=== PATIENT | male | born 1970 | race Caucasian/White ===

== ENCOUNTER 2017-10-25 09:03 | Emergency (ER) | payer MEDICAID ==
[~2017-10-25] VITALS: Ht 185.4 cm; Wt 138.3 kg
[2017-10-25] MEDS ORDERED: AMLODIPINE BESY10 MG PO (09:06)
[2017-10-25] MEDS ORDERED: CARVEDILOL12.5 MG PO (09:06)
[2017-10-25] MEDS ORDERED: GLUCOTROL5 MG PO (09:06)
[2017-10-25] MEDS ORDERED: JANUVIA100 MG PO (09:07)
[2017-10-25] MEDS ORDERED: LASIX 20 MG TAB20 MG PO (09:07)
[2017-10-25 09:32] LABS: HEMOGLOBIN 8.1 gm/dL (14.0-18.0); WBC 9.9 thou/uL (4.0-11.0)
[2017-10-25 09:34] LABS: HEMATOCRIT 26.1 % (42.0-52.0); MCH 23.7 pg (26.0-34.0); MCHC 30.9 g/dL (28.0-37.0); MCV 76.5 fL (80.0-100.0); MPV 8.1 fl. (7.2-11.1); NUCLEATED RBCS 0 /100WBC; PLATELET COUNT* 316 thou/uL (150-400); RBC 3.41 mil/uL (4.50-6.00); RDW-CV 19.9 % (10.5-14.5)
[2017-10-25 09:40] LABS: ANION GAP 10 mmol/L (7-16); BUN 43 mg/dL (7-18); CALCIUM 8.4 mg/dL (8.5-10.1); CHLORIDE 105 mmol/L (98-107); CO2 25 mmol/L (21-32); CREATININE 1.8 mg/dL (0.6-1.3); GLUCOSE 265 mg/dL (70-99); SODIUM 140 mmol/L (136-145)
[2017-10-25 09:51] LABS: ALBUMIN 2.9 g/dL (3.4-5.0); ALKALINE PHOSPHATASE 95 U/L (46-116); NT-PRO BRAIN NAT PEPTIDE 3779 pg/mL (<300); SGOT 16 U/L (15-37); SGPT 27 U/L (30-65); TOTAL BILIRUBIN 0.7 mg/dL (<0.1-1.0); TOTAL PROTEIN 7.9 g/dL (6.4-8.2); TROPONIN-I LEVEL <0.06 ng/mL (<0.06)
[2017-10-25 10:23] LABS: ABSOLUTE BASOPHILS 0.1 thou/uL (0.0-0.2); ABSOLUTE EOSINOPHILS 0.2 thou/uL (0.0-0.7); ABSOLUTE LYMPHOCYTES 0.5 thou/uL (0.8-5.3); ABSOLUTE MONOCYTES 0.2 thou/uL (0.0-1.2); ABSOLUTE NEUTROPHILS 8.9 thou/uL (1.6-8.1); ATYPICAL LYMPHS 1 %; METAMYELOCYTES 2 %
[2017-10-25 10:24] LABS: ANISOCYTOSIS 2+; HYPOCHROMASIA 1+; MICROCYTES 1+; PLATELET ESTIMATE ADEQUATE; POLYCHROMASIA 1+
[2017-10-25 13:50] VITALS: BP 120/75
--- NOTE | 2017-10-25 15:27 | EKG ---
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: Debra MOSER : 1970 Requested By: Billy Nunez Order Number: [id number] MD: Luis Carlos Dean Measurements Intervals [place] Rate: 103 P: 15 [place]: 172 QRS: -46 QRSD: 139 T: 135 QT: 380 QTc: 498 Interpretive Statements Sinus tachycardia artifact noted left axis Left bundle branch block No previous ECG available for comparison Electronically Signed On 10-25-2017 15:27:01 CDT by Luis Carlos Dean [email or web address] <ELECTRONICALLY SIGNED> By: Luis Carlos Dean MD, [facility] 10/25/17 1527 0907 6 Luis Carlos Dean MD, FACC /EPI
== END 2017-10-25 13:50 | disposition short-term general hospital (02) ==
LOC: M.ERS 09:03
PROVIDERS: Emergency Medicine Emergency Medical Services
DX: I50.9 Heart failure, unspecified (principal); E11.9 Type 2 diabetes mellitus without complications; Z87.891 Personal history of nicotine dependence

== ENCOUNTER 2018-01-19 04:37 | Inpatient (IN) | payer MEDICAID ==
[~2018-01-19] VITALS: Ht 185.4 cm; Wt 127.0 kg
[~2018-01-19 04:37] MED LIST: AMLODIPINE BESY10 MG PO; CARVEDILOL12.5 MG PO; GLUCOTROL5 MG PO; JANUVIA100 MG PO; LASIX 20 MG TAB20 MG PO
[2018-01-19 04:43] VITALS: BP 180/112
[2018-01-19] MEDS ORDERED: PREDNISONE 10 M10 MG PO (04:50)
[2018-01-19] MEDS ORDERED: LASIX 40 MG TAB40 M2 PO (04:50)
[2018-01-19] MEDS ORDERED: LISINOPRIL5 MG PO (04:50)
[2018-01-19] MEDS ORDERED: FLONASE 0.05%50 MCG INH (04:50)
[2018-01-19] MEDS ORDERED: COREG25 MG PO (04:51)
[2018-01-19] MEDS ORDERED: ALLOPURINOL 10100 M2 PO (04:51)
[2018-01-19] MEDS ORDERED: PROTONIX40 M1 PO (04:51)
[2018-01-19] MEDS ORDERED: METFORMIN HCL500 MG PO (04:52)
[2018-01-19] MEDS ORDERED: DILTIAZEM 24HR120 M1 PO (04:53)
[2018-01-19] MEDS ORDERED: IRON325 PO (04:53)
[2018-01-19] MEDS ORDERED: XARELTO15 MG PO (04:53)
[2018-01-19 05:09] LABS: HEMATOCRIT 25.7 % (42.0-52.0); HEMOGLOBIN 7.8 gm/dL (14.0-18.0); MCH 22.4 pg (26.0-34.0); MCHC 30.4 g/dL (28.0-37.0); MCV 73.7 fL (80.0-100.0); MPV 8.3 fl. (7.2-11.1); NUCLEATED RBCS 0 /100WBC; PLATELET COUNT* 378 thou/uL (150-400); RBC 3.49 mil/uL (4.50-6.00); RDW-CV 23.2 % (10.5-14.5); WBC 11.5 thou/uL (4.0-11.0)
[2018-01-19 05:20] LABS: ANION GAP 13 mmol/L (7-16); BUN 34 mg/dL (7-18); CALCIUM 8.8 mg/dL (8.5-10.1); CHLORIDE 101 mmol/L (98-107); CO2 25 mmol/L (21-32); CREATININE 1.6 mg/dL (0.6-1.3); GLUCOSE 269 mg/dL (70-99); POTASSIUM 4.1 mmol/L (3.5-5.1); SODIUM 139 mmol/L (136-145)
[2018-01-19 05:23] LABS: INR 1.2; PROTIME 11.9 Seconds (9.20-11.50)
[2018-01-19 05:35] LABS: ALBUMIN 2.8 g/dL (3.4-5.0); ALKALINE PHOSPHATASE 97 U/L (46-116); NT-PRO BRAIN NAT PEPTIDE 3401 pg/mL (<300); SGOT 13 U/L (15-37); SGPT 13 U/L (30-65); TOTAL BILIRUBIN 0.9 mg/dL (<0.1-1.0); TOTAL PROTEIN 7.9 g/dL (6.4-8.2); TROPONIN-I LEVEL <0.06 ng/mL (<0.06)
[2018-01-19 05:37] LABS: ABSOLUTE EOSINOPHILS 0.1 thou/uL (0.0-0.7); ABSOLUTE LYMPHOCYTES 1.2 thou/uL (0.8-5.3); ABSOLUTE MONOCYTES 1.2 thou/uL (0.0-1.2); ABSOLUTE NEUTROPHILS 9.1 thou/uL (1.6-8.1); PLATELET ESTIMATE ADEQUATE; POLYCHROMASIA 1+
[2018-01-19 05:38] LABS: ANISOCYTOSIS 1+; HYPOCHROMASIA 2+; MICROCYTES 1+; OVALOCYTES 1+; POIKILOCYTOSIS 1+
[2018-01-19 07:53] VITALS: BP 140/93
[2018-01-19 08:14] LABS: CHOLESTEROL 158 mg/dL (<200); HDL CHOLESTEROL 35 mg/dL (>40); LDL CHOLESTEROL 91 mg/dL (<100); TC:HDL 4.5 Ratio (Not establshd); TRIGLYCERIDE 162 mg/dL (<150); VLDL 32 mg/dL (<40)
[2018-01-19 08:15] LABS: SERUM ASSESSMENT Clear
--- NOTE | 2018-01-19 10:41 | EKG ---
[place] [address] ELECTROCARDIOGRAM REPORT Name: YAQUELIN WHITAKER Room: [address] IN [facility].#: [id number] Admission: 01/19/18 Attend Phys: Shankar Doty Discharge: Date of : 68 Report #: [id number] THIS REPORT FOR: //name// 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: ANNE Richardson : 1970 Requested By: Gege Zimmer Order Number: [id number] MD: Luis Carlos Dean Measurements Intervals [place] Rate: 117 P: 0 [place]: 138 QRS: -23 QRSD: 144 T: 147 QT: 358 QTc: 500 Interpretive Statements Sinus tachycardia Left bundle branch block Baseline wander in lead(s) V3 Compared to ECG 10/25/2017 09:07:42 No significant changes Electronically Signed On 01-19-2018 10:41:15 CDT by Luis Carlos Dean [email or web address] <ELECTRONICALLY SIGNED> By: Luis Carlos Dean MD, [facility] 01/19/18 1041 0458 0458 Luis Carlos Dean MD, [facility] /EPI
[2018-01-19 12:00] VITALS: BP 146/85
--- NOTE | 2018-01-19 13:47 | 2DMMODE ---
[place] [address] 2 D/M-MODE ECHOCARDIOGRAM Name: YAQUELIN WHITAKER Room: [address] IN [facility]#: [id number] Admission: 01/19/18 Attend Phys: Xu Alicea Discharge: Date of : 68 Date of Service: 01/19/18 1347 Report #: [id number] THIS REPORT FOR: //name// APPROVED REPORT Study performed: 01/19/2018 10:43:09 EXAM: Comprehensive 2D, Doppler, and color-flow Echocardiogram Patient Location: In-Patient Room #: [facility] Status: routine BSA: 2.48 HR: 91 bpm BP: 140/93 mmHg Rhythm: NSR Other Information Study Quality: Good Indications Congestive Heart Failure 2D Dimensions LVEF(%): 35.81 (>50%) IVSd: 13.60 (7-11mm) LVOT Diam: 20.03 (18-24mm) LVDd: 62.32 mm PWd: 12.06 (7-11mm) Ascending Ao: 34.97 (22-36mm) LVDs: 51.38 (25-40mm) Aortic Root: 30.95 mm Moore's LVEF: 35.81 % Volumes Left Atrial Volume (Systole) LA ESV Index: 43.40 mL/m2 Aortic Valve AoV Peak Tano.: 1.55 m/s AO Peak Gr.: 9.64 mmHg LVOT Max P.69 mmHg AO Mean Gr.: 5.64 mmHg LVOT Mean P.28 mmHg LVOT Max V: 1.29 m/s AO V2 VTI: 27.43 cm LVOT Mean V: 0.82 m/s LINDA (VTI): 2.71 cm2 LVOT V1 VTI: 23.59 cm Mitral Valve E/A Ratio: 1.59 [place] [address] 2 D/M-MODE ECHOCARDIOGRAM Name: YAQUELIN WHITAKER Room: [address] IN .R.#: [id number] Admission: 01/19/18 Attend Phys: Xu Alicea Discharge: Date of : 68 Date of Service: 01/19/18 1347 Report #: [id number] E Max Tano.: 1.47 m/s TDI E/Lateral E': 14.70 E/Medial E': 16.33 Medial E' Tano.: 0.09 m/s Lateral E' Tano.: 0.10 m/s Pulmonary Valve PV Peak Tano.: 1.08 m/s PV Peak Gr.: 4.71 mmHg Tricuspid Valve TR Peak Gr.: 27.24 mmHg RVSP: 32.00 mmHg Left Ventricle Left ventricle is mildly dilated. There is global hypokinesis of the left ventricle. Mild concentric left ventricular hypertrophy. Left ventricular systolic function is moderately decreased. LVEF is 30-35%. The left ventricular diastolic function is normal. Right Ventricle The right ventricle is normal size. The right ventricular systolic function is normal. Atria Left atrium is moderately dilated. The right atrium size is normal. Aortic Valve The Aortic valve is sclerotic. No aortic regurgitation is present. There is no aortic valvular stenosis. Mitral Valve The mitral valve is normal in structure. Trace mitral regurgitation. No evidence of mitral valve stenosis. Tricuspid Valve The tricuspid valve is normal in structure. Trace tricuspid regurgitation. The RVSP is 30-35 mmHg. Pulmonic Valve Pulmonic valve is not well visualized. Mild pulmonic regurgitation. Great Vessels The aortic root is normal in size. IVC is normal in size and collapses with >50% [place] [address] 2 D/M-MODE ECHOCARDIOGRAM Name: YAQUELIN WHITAKER Melissa Room: [address] IN [facility]#: [id number] Admission: 01/19/18 Attend Phys: Xu Alicea Discharge: Date of : 68 Date of Service: 01/19/18 1347 Report #: [id number] Pericardium There is no pericardial effusion. <Conclusion> Mild concentric left ventricular hypertrophy. LVEF is 30-35%. Left atrium is moderately dilated. The Aortic valve is sclerotic. <ELECTRONICALLY SIGNED> By: Luis Carlos Dean MD, [facility] 01/19/18 134 46 46 Luis Carlos Dean MD, FAC /INF
[2018-01-19 16:00] VITALS: BP 147/69
[2018-01-19 16:19] LABS: URINE BILIRUBIN NEGATIVE (Negative); URINE BLOOD TRACE (Negative); URINE CLARITY CLEAR; URINE COLOR YELLOW; URINE GLUCOSE-RANDOM TRACE (Negative); URINE KETONES NEGATIVE (Negative); URINE LEUKOCYTES-REFLEX NEGATIVE (Negative); URINE NITRITE-REFLEX NEGATIVE (Negative); URINE PROTEIN 3+ (Negative); URINE UROBILINOGEN 0.2 E.U./dl (0.2-1.0)
[2018-01-19 16:34] LABS: HYALINE CASTS 4-10 Moderate /LPF (None Seen)
[2018-01-19 16:35] LABS: CRYSTALS None Seen /LPF (None Seen); MUCUS None Seen strn/LPF (None Seen); SQUAMOUS 0-3 Few /LPF (0-3)
[2018-01-19 16:36] LABS: BACTERIA-REFLEX None Seen /HPF (None Seen); URINE RBC 0-2 Rare /HPF (0-2); URINE WBC-REFLEX 0-5 Rare /HPF (0-5)
[2018-01-19 20:00] VITALS: BP 159/85
[2018-01-20 04:00] VITALS: BP 135/71
[2018-01-20 05:03] LABS: HEMATOCRIT 21.6 % (42.0-52.0)
[2018-01-20 05:05] LABS: CALCIUM 8.7 mg/dL (8.5-10.1); CREATININE 1.7 mg/dL (0.6-1.3); POTASSIUM 4.1 mmol/L (3.5-5.1)
[2018-01-20 05:08] LABS: HEMOGLOBIN 6.7 gm/dL (14.0-18.0)
[2018-01-20 06:19] LABS: HEMATOCRIT 22.7 % (42.0-52.0)
[2018-01-20 06:20] LABS: HEMOGLOBIN 6.9 gm/dL (14.0-18.0)
[2018-01-20 08:00] VITALS: BP 130/80
[2018-01-20 08:32] VITALS: BP 119/69; BP 130/86; BP 133/78; BP 135/74
[2018-01-20 12:00] VITALS: BP 170/94
[2018-01-20 16:12] VITALS: BP 143/78
[2018-01-20 20:00] VITALS: BP 155/85
[2018-01-21 04:00] VITALS: BP 179/90
[2018-01-21 04:10] VITALS: BP 147/78
[2018-01-21 04:52] LABS: HEMATOCRIT 25.1 % (42.0-52.0); HEMOGLOBIN 7.7 gm/dL (14.0-18.0)
[2018-01-21 05:13] LABS: CALCIUM 8.6 mg/dL (8.5-10.1); CREATININE 1.6 mg/dL (0.6-1.3); POTASSIUM 4.4 mmol/L (3.5-5.1)
[2018-01-21 08:00] VITALS: BP 169/77
[2018-01-21] MEDS ORDERED: KEFLEX500 M1 PO (09:58)
[2018-01-21] MEDS ORDERED: TYLENOL325 MG PO (10:53)
[2018-01-21 12:00] VITALS: BP 151/85
[2018-01-21 16:00] VITALS: BP 158/86
--- NOTE | 2018-01-23 18:18 | CON ---
[facility] [address] [place] [address] CONSULTATION Name: YAQUELIN WHITAKER Room: [address] IN M.R.#: [id number] Admission: 01/19/18 Attend Phys: Shankar Doty Discharge: 01/21/18 Date of : 68 Report #: [id number] THIS REPORT FOR: //name// CC: VIKTOR physician/PCP Xu Alicea DATE OF SERVICE: 01/19/2018 HISTORY OF PRESENT ILLNESS: The patient is a 47-year-old single white male who was admitted complaining of shortness of breath. Unfortunately, no old records available. The patient states he was doing well until he was admitted to [facility] in July with shortness of breath. He has had 8 hospitalizations at [facility] since that time. Workup included being told he had congestive heart failure. He apparently never had a heart catheterization. He has had swelling of his legs, but apparently Doppler study showed no clots. Recently, he has been coughing and had a lot of sinus congestion and has had a little more swelling. He came to the hospital yesterday and was admitted. He has had no fever, chest pain, palpitations or bleeding. He does occasionally feel lightheaded. PAST MEDICAL HISTORY: Significant for no major surgical procedures. He does have history of gout, diabetes, hypertension, hyperlipidemia. He has had a fast irregular heartbeat in the past and was placed on Xarelto. CURRENT MEDICATIONS: Consist of the following: He is on Januvia, prednisone, lisinopril, Lasix, Flonase, carvedilol, allopurinol, Protonix, metformin, diltiazem, furosemide, Xarelto. ALLERGIES: He has no known drug allergies. FAMILY HISTORY: Negative for heart disease. SOCIAL HISTORY: He is . 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 He quit smoking 5 years ago. No alcohol abuse. REVIEW OF SYSTEMS: He is overweight, being 6 feet 1 inch, 280 pounds. He has no history of stroke, asthma, peptic ulcer disease, liver disease. He has chronic kidney disease, no cancer. No psychiatric illness. PHYSICAL EXAMINATION: GENERAL: Revealed a middle-aged white male, BiPAP in place, but appeared in no acute distress. VITAL SIGNS: Revealed a blood pressure of 160/80, pulse 100. He is afebrile. HEENT: He is anicteric. Conjunctivae pink. Mucous membranes moist. NECK: Veins are difficult to assess due to obesity. CHEST: Revealed [place] [address] CONSULTATION Name: YAQUELIN WHITAKER Room: [address] IN M.R.#: [id number] Admission: 01/19/18 Attend Phys: Shankar Doty Discharge: 01/21/18 Date of : 68 Report #: [id number] CARDIOVASCULAR: Regular rate and rhythm. ABDOMEN: Obese, soft, nontender. EXTREMITIES: Had 1+ edema up to the mid tibial area. Dorsalis pedis pulse 1+ bilaterally. SKIN: Cool and dry. NEUROLOGIC: Nonfocal. LYMPH: No adenopathy. MUSCULOSKELETAL: No joint effusion. PSYCHIATRIC: Mood appeared somewhat depressed. His ECG showed a sinus tachycardia with a left bundle branch block. Workup in the Emergency Room included a chest x-ray that showed cardiomegaly, clear lung lemus, evidence of atelectasis. LABORATORY DATA: Sodium 139, BUN 34, creatinine 1.6, potassium 4.1, glucose 269. Liver function studies were normal. Albumin is only 2.8. Troponin 0.10. He had a BNP 3401. Cholesterol 158, triglyceride 162, HDL 35, LDL 91. TSH 1.7. White blood cell of 11.5, hemoglobin 7.8. IMPRESSION AND RECOMMENDATIONS: 1. Shortness of breath. Suspect chronic obstructive pulmonary disease. 2. History of cardiomyopathy. The patient is followed at [facility]. The patient has been on an KINGSTON inhibitor and beta alannah. We will obtain echocardiogram. 3. History of tachyarrhythmia. The patient is on diltiazem and a beta alannah. The patient has been anticoagulated. I would hold Xarelto because of anemia. 4. Diabetes. 5. Obesity. 6. Chronic obstructive pulmonary disease. 7. Anemia. I would hold Xarelto at this time. <ELECTRONICALLY SIGNED> By: Luis Carlos Dean MD, [facility] 01/23/18 1818 1101 1638Luis Carlos Dean MD, FAC /nt
== END 2018-01-21 18:31 | disposition home or self-care (01) | DRG 291 ==
LOC: M.ERS 04:37 → M.2W 06:16 → M.TBA-ER 06:16 → M.2W 08:06
PROVIDERS: Emergency Medicine; Internal Medicine; Internal Medicine Cardiovascular Disease; ADMIT Internal Medicine
PROC: 5A09357 Assistance with Respiratory Ventilation, Less than 24 Consecutive Hours, Continuous Positive Airway Pressure (ICD-10-PCS; principal; 2018-01-19)
PROC: 30233N1 Transfusion of Nonautologous Red Blood Cells into Peripheral Vein, Percutaneous Approach (ICD-10-PCS; 2018-01-20)
DX: I13.0 Hypertensive heart and chronic kidney disease with heart failure and stage 1 through stage 4 chronic kidney disease, or unspecified chronic kidney disease (principal); I50.41 Acute combined systolic (congestive) and diastolic (congestive) heart failure; J96.00 Acute respiratory failure, unspecified whether with hypoxia or hypercapnia; I42.9 Cardiomyopathy, unspecified; D64.9 Anemia, unspecified; I48.91 Unspecified atrial fibrillation; Z79.01 Long term (current) use of anticoagulants; R61 Generalized hyperhidrosis; K21.9 Gastro-esophageal reflux disease without esophagitis; M10.9 Gout, unspecified; E11.22 Type 2 diabetes mellitus with diabetic chronic kidney disease; J44.9 Chronic obstructive pulmonary disease, unspecified; E78.5 Hyperlipidemia, unspecified; N18.9 Chronic kidney disease, unspecified; Z79.4 Long term (current) use of insulin

== ENCOUNTER 2018-02-11 09:31 | Inpatient (IN) | payer MEDICAID ==
[~2018-02-11] VITALS: Ht 182.9 cm; Wt 135.2 kg
[~2018-02-11 09:31] MED LIST changes: +ALLOPURINOL 10100 M2 PO; +COREG25 MG PO; +DILTIAZEM 24HR120 M1 PO; +FLONASE 0.05%50 MCG INH; +IRON325 PO; +KEFLEX500 M1 PO; +LASIX 40 MG TAB40 M2 PO; +LISINOPRIL5 MG PO; +METFORMIN HCL500 MG PO; +PREDNISONE 10 M10 MG PO; +PROTONIX40 M1 PO; +TYLENOL325 MG PO; +XARELTO15 MG PO
[2018-02-11 09:36] VITALS: BP 175/101
[2018-02-11] MEDS ORDERED: XARELTO15 MG PO (09:41)
[2018-02-11 10:14] LABS: BE 3.3 mmol/L (-2 to +3); HCO3 28.1 mmol/L (22.0-26.0); pH 7.423 (7.340-7.450)
[2018-02-11 10:15] LABS: PO2 125.6 mmHg (75.0-100.0)
[2018-02-11 10:21] LABS: HEMOGLOBIN 9.3 gm/dL (14.0-18.0); MCH 23.2 pg (26.0-34.0); MCHC 30.8 g/dL (28.0-37.0); MCV 75.4 fL (80.0-100.0); MPV 7.7 fl. (7.2-11.1); NUCLEATED RBCS 0 /100WBC; PLATELET COUNT* 292 thou/uL (150-400); RBC 3.99 mil/uL (4.50-6.00); RDW-CV 22.6 % (10.5-14.5); WBC 11.1 thou/uL (4.0-11.0)
[2018-02-11 10:33] LABS: CALCIUM 8.6 mg/dL (8.5-10.1); CREATININE 1.4 mg/dL (0.6-1.3); POTASSIUM 3.4 mmol/L (3.5-5.1)
[2018-02-11 10:44] LABS: ALBUMIN 2.9 g/dL (3.4-5.0); MAGNESIUM 1.9 mg/dL (1.8-2.4); TOTAL BILIRUBIN 0.4 mg/dL (<0.1-1.0); TOTAL PROTEIN 7.2 g/dL (6.4-8.2)
[2018-02-11 11:01] LABS: ABSOLUTE MONOCYTES 0.8 thou/uL (0.0-1.2); ABSOLUTE NEUTROPHILS 9.3 thou/uL (1.6-8.1); ANISOCYTOSIS 1+; HYPOCHROMASIA Occasional; PLATELET ESTIMATE ADEQUATE; POIKILOCYTOSIS 1+
[2018-02-11 11:36] LABS: URINE BILIRUBIN NEGATIVE (Negative); URINE BLOOD TRACE (Negative); URINE CLARITY CLEAR; URINE COLOR YELLOW; URINE GLUCOSE-RANDOM NEGATIVE (Negative); URINE KETONES NEGATIVE (Negative); URINE LEUKOCYTES-REFLEX NEGATIVE (Negative); URINE NITRITE-REFLEX NEGATIVE (Negative); URINE PROTEIN 2+ (Negative); URINE UROBILINOGEN 0.2 E.U./dl (0.2-1.0)
[2018-02-11 11:43] LABS: BACTERIA-REFLEX 1-9 Few /HPF (None Seen); CASTS None Seen /LPF (None Seen); CRYSTALS None Seen /LPF (None Seen); MUCUS 4-6 Moderate strn/LPF (None Seen); SQUAMOUS 0-3 Few /LPF (0-3); URINE RBC 0-2 Rare /HPF (0-2); URINE WBC-REFLEX 0-5 Rare /HPF (0-5)
[2018-02-11 11:57] VITALS: BP 152/92
[2018-02-11 12:30] VITALS: BP 142/87
--- NOTE | 2018-02-11 14:53 | EKG ---
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: : 1970 Requested By: Marii Ng Order Number: [id number] MD: Luis Carlos Dean Measurements Intervals [place] Rate: 89 P: 51 [place]: 155 QRS: -53 QRSD: 139 T: 111 QT: 389 QTc: 474 Interpretive Statements Sinus rhythm Probable left atrial enlargement Nonspecific IVCD with LAD Consider anterior infarct Abnormal T, consider ischemia, lateral leads Baseline wander in lead(s) V4 Compared to ECG 01/19/2018 04:58:54 Sinus tachycardia no longer present Left bundle-branch block no longer present Electronically Signed On 02-11-2018 14:53:04 CDT by Luis Carlos Dean [email or web address] <ELECTRONICALLY SIGNED> By: Luis Carlos Dean MD, FACC 02/11/18 1453 0939 0939 Luis Carlos Dean MD, FAC /EPI
[2018-02-11 15:48] VITALS: BP 125/60
[2018-02-12 03:44] VITALS: BP 147/81
[2018-02-12 08:00] VITALS: BP 182/103
[2018-02-12 08:12] LABS: HEMOGLOBIN 9.9 gm/dL (14.0-18.0); MCH 23.1 pg (26.0-34.0); MCHC 30.9 g/dL (28.0-37.0); MCV 74.6 fL (80.0-100.0); MPV 8.3 fl. (7.2-11.1); RBC 4.29 mil/uL (4.50-6.00); RDW-CV 22.5 % (10.5-14.5); WBC 11.9 thou/uL (4.0-11.0)
[2018-02-12 08:22] LABS: PHOSPHORUS* 5.1 mg/dL (2.5-4.9)
[2018-02-12 08:23] LABS: ALBUMIN 3.1 g/dL (3.4-5.0); CALCIUM 8.5 mg/dL (8.5-10.1); CREATININE 1.5 mg/dL (0.6-1.3); POTASSIUM 3.8 mmol/L (3.5-5.1)
[2018-02-12 12:00] VITALS: BP 159/88
[2018-02-12 15:50] VITALS: BP 150/88
[2018-02-12 22:00] VITALS: BP 161/83
[2018-02-13 04:00] VITALS: BP 164/97
[2018-02-13 08:00] VITALS: BP 186/106
[2018-02-13 12:01] VITALS: BP 168/99
[2018-02-13] MEDS ORDERED: TRADJENTA5 MG PO (12:38)
[2018-02-13] MEDS ORDERED: KLOR-CON 1010 MEQ PO (12:38)
[2018-02-13] MEDS ORDERED: LASIX 40 MG TAB40 M2 PO (12:38)
[2018-02-13 12:51] VITALS: BP 168/99
== END 2018-02-13 13:35 | disposition home or self-care (01) | DRG 293 ==
LOC: M.ERS 09:31 → M.2W 11:09 → M.TBA-ER 11:09 → M.2W 11:53
PROVIDERS: Internal Medicine; Personal Emergency Response Attendant; ADMIT Internal Medicine
DX: I50.9 Heart failure, unspecified (principal); J01.91 Acute recurrent sinusitis, unspecified; E11.9 Type 2 diabetes mellitus without complications; M10.9 Gout, unspecified; J06.9 Acute upper respiratory infection, unspecified; N19 Unspecified kidney failure; D64.9 Anemia, unspecified; I48.91 Unspecified atrial fibrillation; Z79.01 Long term (current) use of anticoagulants; Z79.899 Other long term (current) drug therapy; Z87.891 Personal history of nicotine dependence

== ENCOUNTER 2018-05-17 23:15 | Emergency (ER) | payer MEDICAID ==
[~2018-05-17] VITALS: Ht 185.4 cm; Wt 147.6 kg
[~2018-05-17 23:15] MED LIST changes: +KLOR-CON 1010 MEQ PO; +TRADJENTA5 MG PO
[2018-05-17] MEDS ORDERED: PRINIVIL20 MG PO (23:40)
[2018-05-18 00:45] LABS: HEMATOCRIT 30.6 % (42.0-52.0); HEMOGLOBIN 9.7 gm/dL (14.0-18.0); MCH 25.2 pg (26.0-34.0); MCHC 31.7 g/dL (28.0-37.0); MCV 79.6 fL (80.0-100.0); MPV 8.5 fl. (7.2-11.1); NUCLEATED RBCS 0 /100WBC; PLATELET COUNT* 229 thou/uL (150-400); RBC 3.85 mil/uL (4.50-6.00); RDW-CV 20.6 % (10.5-14.5); WBC 9.3 thou/uL (4.0-11.0)
[2018-05-18 00:53] LABS: ANION GAP 4 mmol/L (7-16); BUN 38 mg/dL (7-18); CALCIUM 8.3 mg/dL (8.5-10.1); CHLORIDE 105 mmol/L (98-107); CO2 30 mmol/L (21-32); CREATININE 1.6 mg/dL (0.6-1.3); GLUCOSE 269 mg/dL (70-99); POTASSIUM 4.4 mmol/L (3.5-5.1); SODIUM 139 mmol/L (136-145)
[2018-05-18 00:56] LABS: BE 0.9 mmol/L (-2 to +3); HCO3 25.4 mmol/L (22.0-26.0); PCO2 39.8 mmHg (35.0-45.0); PO2 76.6 mmHg (75.0-100.0); pH 7.422 (7.340-7.450)
[2018-05-18 01:04] LABS: ALBUMIN 2.7 g/dL (3.4-5.0); ALKALINE PHOSPHATASE 88 U/L (46-116); NT-PRO BRAIN NAT PEPTIDE 1868 pg/mL (<300); SGOT 7 U/L (15-37); SGPT 11 U/L (30-65); TOTAL BILIRUBIN 0.6 mg/dL (<0.1-1.0); TOTAL PROTEIN 6.7 g/dL (6.4-8.2); TROPONIN-I LEVEL <0.06 ng/mL (<0.06)
[2018-05-18 01:46] LABS: ABSOLUTE LYMPHOCYTES 0.5 thou/uL (0.8-5.3); ABSOLUTE MONOCYTES 0.8 thou/uL (0.0-1.2); PLATELET ESTIMATE ADEQUATE
[2018-05-18 01:47] LABS: ANISOCYTOSIS 2+; POLYCHROMASIA 1+
[2018-05-18 02:09] VITALS: BP 155/79
--- NOTE | 2018-05-18 11:00 | EKG ---
[place] [address] ELECTROCARDIOGRAM REPORT Name: YAQUELIN WHITAKER Room: [facility]#: [id number] Admission: 05/17/18 Attend Phys: Discharge: 05/18/18 Date of : 68 Report #: [id number] THIS REPORT FOR: //name// [facility] ED Test Date: 2018-05-18 Test Time: 01:38:37 Pat Name: YAQUELIN WHITAKER Department: Room: Gender: M Qa Analyst: 99 : 1970 Requested By: Marii Ng Order Number: [id number] MD: Luis Carlos Dean Measurements Intervals [place] Rate: 82 P: 29 [place]: 176 QRS: -49 QRSD: 133 T: 121 QT: 427 QTc: 499 Interpretive Statements Sinus rhythm Left bundle branch block Compared to ECG 02/11/2018 09:39:12 no change Electronically Signed On 05-18-2018 11:00:04 CDT by Luis Carlos Dean [email or web address] <ELECTRONICALLY SIGNED> By: Luis Carlos Dean MD, [facility] 05/18/18 1100 0138 0138 Luis Carlos Dean MD, FACC /EPI
== END 2018-05-18 02:09 | disposition home or self-care (01) ==
LOC: M.ERS 23:15
PROVIDERS: Personal Emergency Response Attendant
DX: I50.9 Heart failure, unspecified (principal); I48.91 Unspecified atrial fibrillation; E11.9 Type 2 diabetes mellitus without complications; M10.9 Gout, unspecified; N19 Unspecified kidney failure; Z86.2 Personal history of diseases of the blood and blood-forming organs and certain disorders involving the immune mechanism; Z87.891 Personal history of nicotine dependence

== ENCOUNTER 2018-11-28 11:39 | Emergency (ER) | payer MEDICAID ==
[~2018-11-28] VITALS: Ht 185.4 cm; Wt 140.6 kg
[~2018-11-28 11:39] MED LIST changes: +PRINIVIL20 MG PO
[2018-11-28 12:07] LABS: HEMATOCRIT 29.1 % (42.0-52.0); HEMOGLOBIN 8.8 gm/dL (14.0-18.0); MCH 23.8 pg (26.0-34.0); MCHC 30.1 g/dL (28.0-37.0); MCV 78.9 fL (80.0-100.0); MPV 7.8 fl. (7.2-11.1); NUCLEATED RBCS 0 /100WBC; PLATELET COUNT* 174 thou/uL (150-400); RBC 3.68 mil/uL (4.50-6.00); RDW-CV 22.3 % (10.5-14.5); WBC 6.3 thou/uL (4.0-11.0)
[2018-11-28 12:18] LABS: ANION GAP 9 mmol/L (7-16); BUN 38 mg/dL (7-18); CALCIUM 8.7 mg/dL (8.5-10.1); CHLORIDE 108 mmol/L (98-107); CO2 29 mmol/L (21-32); CREATININE 1.7 mg/dL (0.6-1.3); GLUCOSE 116 mg/dL (70-99); POTASSIUM 4.2 mmol/L (3.5-5.1); SODIUM 146 mmol/L (136-145)
[2018-11-28 12:25] LABS: ALBUMIN 3.3 g/dL (3.4-5.0); ALKALINE PHOSPHATASE 128 U/L (46-116); NT-PRO BRAIN NAT PEPTIDE 6949 pg/mL (<300); SGOT 10 U/L (15-37); SGPT 15 U/L (30-65); TOTAL BILIRUBIN 0.7 mg/dL (<0.1-1.0); TOTAL PROTEIN 7.2 g/dL (6.4-8.2); TROPONIN-I LEVEL <0.06 ng/mL (<0.06)
[2018-11-28 13:15] LABS: ABSOLUTE BASOPHILS 0.1 thou/uL (0.0-0.2); ABSOLUTE EOSINOPHILS 0.2 thou/uL (0.0-0.7); ABSOLUTE LYMPHOCYTES 0.3 thou/uL (0.8-5.3); ABSOLUTE MONOCYTES 0.4 thou/uL (0.0-1.2); ABSOLUTE NEUTROPHILS 5.4 thou/uL (1.6-8.1)
[2018-11-28 13:16] LABS: PLATELET ESTIMATE ADEQUATE
[2018-11-28 13:17] LABS: ANISOCYTOSIS 3+; HYPOCHROMASIA 1+; MICROCYTES 3+
[2018-11-28] MEDS ORDERED: DOXYCYCLINE 10100 M1 PO (13:23)
[2018-11-28 13:35] VITALS: BP 154/88
== END 2018-11-28 13:40 | disposition home or self-care (01) ==
LOC: M.ERS 11:39
PROVIDERS: Nurse Practitioner Family
DX: L03.116 Cellulitis of left lower limb (principal); I50.9 Heart failure, unspecified; L97.929 Non-pressure chronic ulcer of unspecified part of left lower leg with unspecified severity; E11.9 Type 2 diabetes mellitus without complications; M10.9 Gout, unspecified; I48.91 Unspecified atrial fibrillation; N19 Unspecified kidney failure; Z87.891 Personal history of nicotine dependence

== ENCOUNTER → 2018-11-30 | Outpatient (CLI) | payer MEDICAID ==
[~2018-11-30] MED LIST changes: +DOXYCYCLINE 10100 M1 PO
== END ==
LOC: M.WC 08:00
DX: E11.622 Type 2 diabetes mellitus with other skin ulcer (principal); L97.822 Non-pressure chronic ulcer of other part of left lower leg with fat layer exposed; I50.22 Chronic systolic (congestive) heart failure; I48.91 Unspecified atrial fibrillation; I87.2 Venous insufficiency (chronic) (peripheral); M10.9 Gout, unspecified; Z87.891 Personal history of nicotine dependence

== ENCOUNTER → 2018-12-07 | Outpatient (CLI) | payer MEDICAID | LOC: M.WC 05:21 | DX: E11.622 Type 2 diabetes mellitus with other skin ulcer (principal); L97.822 Non-pressure chronic ulcer of other part of left lower leg with fat layer exposed; I50.22 Chronic systolic (congestive) heart failure; I48.91 Unspecified atrial fibrillation; M10.9 Gout, unspecified; Z87.891 Personal history of nicotine dependence ==

== ENCOUNTER → 2018-12-07 | Outpatient (CLI) | payer MEDICAID ==
[2018-12-07 10:48] LABS: CALCIUM 8.3 mg/dL (8.5-10.1); CREATININE 1.9 mg/dL (0.6-1.3); POTASSIUM 3.6 mmol/L (3.5-5.1)
== END ==
LOC: M.LAB 10:11
PROVIDERS: Nurse Practitioner
DX: E11.22 Type 2 diabetes mellitus with diabetic chronic kidney disease (principal); I12.9 Hypertensive chronic kidney disease with stage 1 through stage 4 chronic kidney disease, or unspecified chronic kidney disease; N18.9 Chronic kidney disease, unspecified; I48.0 Paroxysmal atrial fibrillation

== ENCOUNTER → 2018-12-12 | Outpatient (CLI) | payer MEDICAID ==
--- NOTE | 2018-12-12 12:26 | 2DMMODE ---
[place] [address] 2 D/M-MODE ECHOCARDIOGRAM Name: JULIANNEYAQUELIN Room: [facility]#: [id number] Admission: 12/12/18 Attend Phys: Luis Carlos Dean MD Discharge: Date of : 68 Date of Service: 12/12/18 1226 Report #: [id number] THIS REPORT FOR: //name// APPROVED REPORT Study performed: 12/12/2018 08:03:17 EXAM: Comprehensive 2D, Doppler, and color-flow Echocardiogram Patient Location: Out-Patient BSA: 2.55 HR: 93 bpm BP: 140/93 mmHg Other Information Study Quality: Fair Indications Congestive Heart Failure Cardiomyopathy 2D Dimensions IVSd: 14.39 (7-11mm) LVOT Diam: 20.50 (18-24mm) LVDd: 63.54 mm PWd: 13.28 (7-11mm) Ascending Ao: 31.87 (22-36mm) LVDs: 51.51 (25-40mm) Aortic Root: 29.78 mm Volumes Left Atrial Volume (Systole) LA ESV Index: 32.50 mL/m2 Aortic Valve AoV Peak Tano.: 1.50 m/s AO Peak Gr.: 9.04 mmHg LVOT Max P.31 mmHg AO Mean Gr.: 5.30 mmHg LVOT Mean P.18 mmHg LVOT Max V: 0.76 m/s AO V2 VTI: 30.40 cm LVOT Mean V: 0.51 m/s LINDA (VTI): 1.53 cm2 LVOT V1 VTI: 14.08 cm Mitral Valve MV Decel. Time: 138.11 ms MV PHT: 40.05 ms MVA (PHT): 5.49 [place] [address] 2 D/M-MODE ECHOCARDIOGRAM Name: YAQUELIN WHITAKER Room: [facility]#: [id number] Admission: 12/12/18 Attend Phys: Luis Carlos Dean MD Discharge: Date of : 68 Date of Service: 12/12/18 1226 Report #: [id number] TDI Medial E' Tano.: 0.13 m/s Lateral E' Tano.: 0.11 m/s Pulmonary Valve PV Peak Tano.: 0.97 m/s PV Peak Gr.: 3.78 mmHg Tricuspid Valve RAP Estimate: 5.00 mmHg TR Peak Gr.: 27.24 mmHg RVSP: 32.24 mmHg PA Pressure: 32.24 mmHg Left Ventricle The left ventricle is normal size. There is moderate diffuse hypokinesis of left ventricular wall motion. Borderline concentric left ventricular hypertrophy. Left ventricular systolic function is moderate to severely decreased. LVEF is 30-35%. Right Ventricle The right ventricle is normal size. The right ventricular systolic function is normal. Atria Left atrium is mildly dilated. The right atrium size is normal. Aortic Valve Mild aortic valve sclerosis. No aortic regurgitation is present. There is no aortic valvular stenosis. Mitral Valve Mild mitral annular calcification. Mild mitral regurgitation. No evidence of mitral valve stenosis. Tricuspid Valve The tricuspid valve is normal in structure. Mild tricuspid regurgitation. Pulmonic Valve The pulmonary valve is normal in structure. Mild pulmonic regurgitation. Great Vessels The aortic root is normal in size. IVC is normal in size and collapses >50% [place] [address] 2 D/M-MODE ECHOCARDIOGRAM Name: YAQUELIN WHITAKER Room: [facility]#: [id number] Admission: 12/12/18 Attend Phys: Luis Carlos Dean MD Discharge: Date of : 68 Date of Service: 12/12/18 1226 Report #: [id number] Pericardium There is no pericardial effusion. <Conclusion> The left ventricle is normal size. Borderline concentric left ventricular hypertrophy. Left ventricular systolic function is moderate to severely decreased. LVEF is 30-35%. The right ventricle is normal size. Left atrium is mildly dilated. Mild aortic valve sclerosis. No aortic regurgitation is present. There is no aortic valvular stenosis. Mild mitral annular calcification. Mild mitral regurgitation. The tricuspid valve is normal in structure. Mild tricuspid regurgitation. IVC is normal in size and collapses >50% with inspiration. There is no pericardial effusion. There is moderate diffuse hypokinesis of left ventricular wall motion. <ELECTRONICALLY SIGNED> By: Gunner Starr MD, [facility] 12/12/18 1226 1226 1226 Gunner Starr MD, FAC /INF
== END ==
LOC: M.CRD 07:55
DX: I08.8 Other rheumatic multiple valve diseases (principal); I42.0 Dilated cardiomyopathy; I50.9 Heart failure, unspecified

== ENCOUNTER → 2018-12-15 | Outpatient (CLI) | payer MEDICAID | LOC: M.WC 12-14 09:00 | DX: E11.622 Type 2 diabetes mellitus with other skin ulcer (principal); L97.822 Non-pressure chronic ulcer of other part of left lower leg with fat layer exposed; I48.91 Unspecified atrial fibrillation; I50.22 Chronic systolic (congestive) heart failure; M10.9 Gout, unspecified; Z87.891 Personal history of nicotine dependence ==

== ENCOUNTER → 2018-12-21 | Outpatient (CLI) | payer MEDICAID | LOC: M.WC 04:53 | DX: E11.622 Type 2 diabetes mellitus with other skin ulcer (principal); L97.821 Non-pressure chronic ulcer of other part of left lower leg limited to breakdown of skin; I48.91 Unspecified atrial fibrillation; I50.22 Chronic systolic (congestive) heart failure; I42.9 Cardiomyopathy, unspecified; M10.9 Gout, unspecified; Z87.891 Personal history of nicotine dependence ==

== ENCOUNTER → 2018-12-28 | Outpatient (CLI) | payer MEDICAID | LOC: M.WC 05:09 | DX: E11.622 Type 2 diabetes mellitus with other skin ulcer (principal); L97.821 Non-pressure chronic ulcer of other part of left lower leg limited to breakdown of skin; I50.22 Chronic systolic (congestive) heart failure; I48.91 Unspecified atrial fibrillation; D64.9 Anemia, unspecified; M10.9 Gout, unspecified; Z87.891 Personal history of nicotine dependence ==

== ENCOUNTER → 2019-01-13 | Outpatient (CLI) | payer MEDICAID | LOC: M.WC 00:28 | DX: E11.622 Type 2 diabetes mellitus with other skin ulcer (principal); L97.821 Non-pressure chronic ulcer of other part of left lower leg limited to breakdown of skin; D64.9 Anemia, unspecified; I50.22 Chronic systolic (congestive) heart failure; I42.9 Cardiomyopathy, unspecified; I48.91 Unspecified atrial fibrillation; M10.9 Gout, unspecified; F32.9 Major depressive disorder, single episode, unspecified; Z87.891 Personal history of nicotine dependence ==

== ENCOUNTER → 2019-01-20 | Outpatient (CLI) | payer MEDICAID | LOC: M.WC 04:34 | DX: E11.622 Type 2 diabetes mellitus with other skin ulcer (principal); L97.821 Non-pressure chronic ulcer of other part of left lower leg limited to breakdown of skin; I50.22 Chronic systolic (congestive) heart failure; I48.91 Unspecified atrial fibrillation; M10.9 Gout, unspecified; F32.9 Major depressive disorder, single episode, unspecified; Z87.891 Personal history of nicotine dependence ==

== ENCOUNTER → 2019-01-24 | Outpatient (CLI) | payer MEDICAID | LOC: M.WC 05:23 | DX: E11.622 Type 2 diabetes mellitus with other skin ulcer (principal); L97.828 Non-pressure chronic ulcer of other part of left lower leg with other specified severity; D64.89 Other specified anemias; I87.2 Venous insufficiency (chronic) (peripheral); I50.22 Chronic systolic (congestive) heart failure; I48.91 Unspecified atrial fibrillation; I42.9 Cardiomyopathy, unspecified; M10.9 Gout, unspecified; F32.9 Major depressive disorder, single episode, unspecified; Z87.891 Personal history of nicotine dependence ==

== ENCOUNTER 2019-04-09 21:37 | Inpatient (IN) | payer MEDICAID ==
[~2019-04-09] VITALS: Ht 185.4 cm; Wt 134.7 kg
[2019-04-09 21:38] VITALS: BP 103/55
[2019-04-09] MEDS ORDERED: METOLAZONE 2.52.5 MG PO (21:47)
--- NOTE | 2019-04-09 22:05 | NUR ---
PATIENT MONITOR HAS RHYTHM CHANGE PATIENT REPORTS NO LONGER FEELING DIZZY OR WEAK.
[2019-04-09 22:16] LABS: ABSOLUTE BASOPHILS 0.1 thou/uL (0.0-0.2); ABSOLUTE EOSINOPHILS 0.3 thou/uL (0.0-0.7); ABSOLUTE LYMPHOCYTES 0.9 thou/uL (0.8-5.3); ABSOLUTE MONOCYTES 1.2 thou/uL (0.0-1.2); BASOPHILS 0.6 %; EOSINOPHILS 2.7 %; HEMATOCRIT 32.8 % (42.0-52.0); HEMOGLOBIN 10.6 gm/dL (14.0-18.0); LYMPHOCYTES 7.2 %; MCH 26.8 pg (26.0-34.0); MCHC 32.3 g/dL (28.0-37.0); MCV 82.8 fL (80.0-100.0); MONOCYTES 9.7 %; MPV 8.8 fl. (7.2-11.1); NUCLEATED RBCS 0 /100WBC; PLATELET COUNT* 252 thou/uL (150-400); POLYS 79.8 %; RBC 3.96 mil/uL (4.50-6.00); WBC 12.5 thou/uL (4.0-11.0)
[2019-04-09 22:17] LABS: BE -4.2 mmol/L (-2 to +3); PCO2 35.6 mmHg (35.0-45.0); pH 7.377 (7.340-7.450)
[2019-04-09 22:18] LABS: PO2 42.8 mmHg (75.0-100.0)
[2019-04-09 22:29] VITALS: BP 137/80
[2019-04-09 22:32] LABS: PROTIME 10.7 Seconds (9.20-11.50)
[2019-04-09 22:43] LABS: ANION GAP 16 mmol/L (7-16); BUN 128 mg/dL (7-18); CALCIUM 8.5 mg/dL (8.5-10.1); CHLORIDE 102 mmol/L (98-107); CO2 18 mmol/L (21-32); CREATININE 3.8 mg/dL (0.6-1.3); GLUCOSE 208 mg/dL (70-99); POTASSIUM 5.5 mmol/L (3.5-5.1); SODIUM 136 mmol/L (136-145)
[2019-04-09 23:00] LABS: ALBUMIN 3.1 g/dL (3.4-5.0); ALKALINE PHOSPHATASE 118 U/L (46-116); LIPASE 414 U/L (73-393); NT-PRO BRAIN NAT PEPTIDE 1348 pg/mL (<300); SGOT 10 U/L (15-37); SGPT 13 U/L (30-65); TOTAL BILIRUBIN 0.4 mg/dL (<0.1-1.0); TOTAL PROTEIN 7.5 g/dL (6.4-8.2); TROPONIN-I LEVEL <0.06 ng/mL (<0.06)
[2019-04-10] VITALS (9 sets, daily range): BP systolic 113–180; BP diastolic 50–88
--- NOTE | 2019-04-10 05:36 | NUR ---
ADMITTED TO ICU BED 5 AT 2340, SEE ASSESSMENTS. MONITOR TRACING SINUS RHYTHM. PT DENIES CHEST PAIN, SOA , AND ANY OTHER DISCOMFORT. VSS. CALL LIGHT WITHIN REACH.
[2019-04-10 08:07] LABS: CALCIUM 8.2 mg/dL (8.5-10.1); CREATININE 3.3 mg/dL (0.6-1.3)
[2019-04-10 08:10] LABS: POTASSIUM 4.3 mmol/L (3.5-5.1)
[2019-04-10 08:16] LABS: CHOLESTEROL 148 mg/dL (<200); HDL CHOLESTEROL 30 mg/dL (>40); LDL CHOLESTEROL 69 mg/dL (<100); TC:HDL 4.9 Ratio (Not establshd); TRIGLYCERIDE 247 mg/dL (<150); VLDL 49 mg/dL (<40)
[2019-04-10 08:17] LABS: SERUM ASSESSMENT Clear
--- NOTE | 2019-04-10 09:50 | NUR ---
PT MAY HAVE CLEAR LIQUIDS HOWEVER WILL REMIAN NPO FOR PPM PLACEMENT THIS AFTERNOON.
--- NOTE | 2019-04-10 10:50 | NUR ---
Nutrition: Pt admitted with heart block. Seen for pressure ulcer risk. Pt has ecchymosis on Lt leg. Albumin 3.1, TG 247, BG 154, BUN 123, cr 3.3. H/o DM, afib, CHF, gout, HTN. Currently NPO. Wt: 297#. No nutrition interventions needed at this time. Will follow for needs. Low risk. Follow up 04/14/19.
--- NOTE | 2019-04-10 11:47 | NUR ---
PT REFUSING ACCU CHECKS.
--- NOTE | 2019-04-10 12:54 | NUR ---
PT OFF UNIT TO UROLOGY TEACHER FOR PPM.
--- NOTE | 2019-04-10 15:29 | NUR ---
BLANKET FOLDER INFORMS ME THAT PT WILL COME BACK TO ICU BUT WILL BE TELE STATUS AND TRANSFER WHEN EVER A TELE BED BECOMES OPEM.
--- NOTE | 2019-04-10 16:06 | NUR ---
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
--- NOTE | 2019-04-10 17:04 | NUR ---
SW met with pt to complete initial assessment, introduce self, and SW role. Pt alert, oriented. Pt lives at home with his mother and did not express any known dc needs or concerns at this time. SW/CM to continue to follow to assist with safe dc planning if needs arise.
--- NOTE | 2019-04-10 17:10 | EKG ---
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: : 1970 Requested By: Marii Ng Order Number: [id number] MD: Luis Carlos Dean Measurements Intervals [place] Rate: 36 P: 33 [place]: 307 QRS: -91 QRSD: 149 T: 93 QT: 568 QTc: 440 Interpretive Statements Sinus rhythm with 3:1 Mobitz 2 av block Probable left atrial enlargement Right bundle branch block Probable anterior infarct, age indeterminate Baseline wander in lead(s) V2 Compared to ECG 05/18/2018 01:38:37 Right bundle-branch block now present Mobitz II noted Electronically Signed On 04-10-2019 17:10:16 CDT by Luis Carlos Dean [email or web address] <ELECTRONICALLY SIGNED> By: Luis Carlos Dean MD, [facility] 04/10/19 1710 41 41 Luis Carlos Dean MD, [facility] /EPI
--- NOTE | 2019-04-10 17:12 | EKG ---
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 : 1970 Requested By: Marii Ng Order Number: [id number] MD: Luis Carlos Dean Measurements Intervals [place] Rate: 97 P: 0 [place]: 46 QRS: -44 QRSD: 161 T: 57 QT: 444 QTc: 564 Interpretive Statements Sinus rhythm Mobitz II av block Nonspecific IVCD with LAD Probable anterolateral infarct, old Compared to ECG 05/18/2018 01:38:37 rate increased Electronically Signed On 04-10-2019 17:12:16 CDT by Luis Carlos Dean [email or web address] <ELECTRONICALLY SIGNED> By: Luis Carlos Dean MD, FAC 04/10/19 1712 222 222 Luis Carlos Dean MD, [facility] /EPI
--- NOTE | 2019-04-10 17:14 | EKG ---
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
--- NOTE | 2019-04-10 17:22 | NUR ---
PT WOULD NOT ALLOW Q15 BLOOD PRESSURES POST PROCEDURE OR ACCU CHECK. WAS ABLE TO OBTAIN SEVERAL BLOOD PRESSURES HOWEVER.
--- NOTE | 2019-04-10 17:48 | CON ---
[address] [address] CONSULTATION Name: JULIANNEYAQUELIN BENAVIDES Room: [address] IN .R.#: [id number] Admission: 04/09/19 Attend Phys: Shankar Doty Discharge: Date of : 68 Report #: [id number] THIS REPORT FOR: //name// CC: VIKTOR physician/PCP Xu Alicea DATE OF SERVICE: 04/10/2019 CARDIOLOGY CONSULTATION HISTORY OF PRESENT ILLNESS: The patient is a 48-year-old single white male who I was asked to see in the hospital today after he had a near syncopal spell. The patient has an extensive past medical history. He apparently was admitted to [facility] in 2017 with shortness of breath. He was told that he had congestive heart failure. He has never had a heart catheterization. He has a lot of edema. He apparently has a history of atrial fibrillation and had a RONALDO in the past, but was never cardioverted. He has been chronically anticoagulated with Xarelto. He was actually admitted here to [place] a year ago in December 2017 with congestive heart failure. He was found to have evidence of a cardiomyopathy. His last echocardiogram in November of this year showed left ventricular hypertrophy, ejection fraction of 35%, left atrial enlargement, aortic sclerosis, mild mitral regurgitation. The patient is not very active, but denies any recent chest pain, increased shortness of breath, palpitations. He apparently was doing well until several days ago, he was working at a computer. He then became lightheaded and dropped the mouse. He came to. Denied any seizure activity. Last night, he again felt lightheaded as if he was going to pass out. His mother brought him to the Emergency Room. He was noted to have episodes of high-degree AV block. He was admitted to a monitored bed for further evaluation and treatment. PAST MEDICAL HISTORY AND PAST SURGICAL HISTORY: Significant for previous no major surgical procedures. He has a history of diabetes, hypertension, hyperlipidemia, gout, paroxysmal atrial fibrillation. MEDICATIONS: Include allopurinol, carvedilol, Cardizem CD, Lasix, Tradjenta, lisinopril, metformin, Zaroxolyn about once or twice a week for edema, potassium, Xarelto. ALLERGIES: He has no known drug allergies. FAMILY HISTORY: Negative for heart disease. 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 Quit smoking years ago. No alcohol abuse, [place] [address] CONSULTATION Name: YAQUELIN WHITAKERROE Room: [address] IN ..#: [id number] Admission: 04/09/19 Attend Phys: Shankar Doty Discharge: Date of : 68 Report #: [id number] REVIEW OF SYSTEMS: He is overweight, being 6 feet 1 inch, 280 pounds. No history of sleep apnea, stroke. Has no peptic ulcer disease, liver disease. He does have chronic kidney disease. No cancer. No psychiatric illness. He apparently had a sore on his leg and was [facility], it finally healed. PHYSICAL EXAMINATION: GENERAL: Revealed a large middle-aged male lying in bed. He appeared in no distress. VITAL SIGNS: His blood pressure was 110/70, pulse is 80, was afebrile. HEENT: He was anicteric. Conjunctivae pink. Mucous membranes moist. NECK: Veins are difficult to assess due to obesity. CHEST: Clear to auscultation. CARDIOVASCULAR: Regular rate and rhythm. ABDOMEN: Obese, soft. EXTREMITIES: Had no edema. Dorsalis pedis pulse 1+ bilaterally. SKIN: Cool and dry. NEUROLOGIC: Nonfocal. RADIOLOGICAL DATA: His ECG showed a sinus rhythm with first-degree AV block and a left bundle-branch block. He was having intermittent episodes of high-degree AV block with episodes of 3-1 second-degree Mobitz type 2 AV block. His chest x-ray last night showed cardiomegaly. Cephalization of upper lobe vessels was noted. CT scan of the head performed without contrast showed no acute abnormalities. LABORATORY WORK: Sodium 139, BUN 123, creatinine last night was 3.8. His liver function studies: Alkaline phosphatase is 118, SGPT 13. Troponin 0.06. BNP 1348. In November, his TSH was 0.9. White blood cell count 12.5, hemoglobin 10.6, it was actually 7.8 year ago, platelet count 252,000. Urinalysis a year ago was positive for protein. IMPRESSION AND RECOMMENDATIONS: 1. High-degree atrioventricular block. Recommend permanent pacemaker. 2. Cardiomyopathy. No history of syncope or ventricular arrhythmias. I would not recommend an ICD at this time. 3. Cardiomyopathy. I would hold his KINGSTON inhibitor because of renal insufficiency. 4. Renal insufficiency. Hold diuretics. 5. History of atrial fibrillation. I would hold Xarelto at this time. The patient has been on diltiazem, metoprolol, and carvedilol. 6. History of sleep apnea. The patient no longer uses CPAP. 7. Obesity. The patient is considering bariatric surgery. 8. Hypertension. The patient has been on beta alannah and calcium alannah and KINGSTON inhibitor. [address] [place] [address] CONSULTATION Name: JAYDAYAQUELIN GIPSON Room: [address] IN M.R.#: [id number] Admission: 04/09/19 Attend Phys: Shankar Doty Discharge: Date of : 68 Report #: [id number] 9. Glucose intolerance. The patient has been on oral medications. 10. Anemia. No history of bleeding. <ELECTRONICALLY SIGNED> By: Luis Carlos Dean MD, FACC 04/10/19 1748 0955 [id number] Dean MD, FACC /nt
--- NOTE | 2019-04-11 01:52 | NUR ---
RECEIVED REPORT FROM YONI MENJIVAR AT 2024. PT ARRIVED TO UNIT AT 2039 VIA WHEELCHAIR. 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 PT LEFT ARM IN A SLING. PT ORIENTED ROOM AND CALL LIGHT. VOICED NO CONCERNS.
[2019-04-11 04:00] VITALS: BP 123/72
--- NOTE | 2019-04-11 07:01 | NUR ---
PT C/O MILD DISCOMFORT TO PACEMAKER INSERTION SITE/SORENESS. PRN PAIN MEDICATION ADMINISTERED X2 THIS SHIFT. SEE EMAR FOR DOCUMENTATION. HOURLY ROUNDING COMPLETED. CALL LIGHT WITHIN REACH.
[2019-04-11 08:15] VITALS: BP 130/79
--- NOTE | 2019-04-11 11:04 | NUR ---
WOUND CARE NOTE: CONSULT RECEIVED FOR PRESSURE ULCER LEFT LATERAL FOOT. PATIENT REFUSED TO ALLOW ME TO ASSESS WOUND. PATIENT'S RN ASKED IF HE WOULD ALLOW THE WOUND RN TO SEE TOMORROW, STATED YES. ASSESSED PHOTOGRAPH. APPEARS IT MAY BE INFLAMMED/INFECTED. MOST LIKELY A DIABETIC FOOT ULCER VERSUS PRESSURE ULCER. WILL ATTEMPT TO SEE TOMORROW.
--- NOTE | 2019-04-11 17:24 | EKG ---
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1970 Requested By: Luis Carlos Dean Order Number: [id number] Rigoberto MD: Vidal Salvador Measurements Intervals Iva Rate: 93 P: 61 AK: 204 QRS: -32 QRSD: 154 T: 87 QT: 401 QTc: 499 Interpretive Statements Sinus rhythm Borderline prolonged AK interval Left bundle branch block Compared to ECG 04/09/2019 22:22:53 No significant changes Electronically Signed On 04-11-2019 17:23:53 CDT by Vidal Salvador [email or web address] <ELECTRONICALLY SIGNED> By: Vidal Salvador MD, [facility] 04/11/19 1723 2 2 Vidal Salvador MD, [facility] /EPI
--- NOTE | 2019-04-11 19:44 | NUR ---
ASSUSSMED CARE OF PT APPROX 0730. REASSESSMENT COMPLETED CHARTED, MEDICATIONS GIVEN CHARTED. PT HAS REFUSED TO HAVE ACCU CHECKS, VITAL SIGNS, AND LABS THIS SHIFT. PT WAS OFF UNIT FOR PROCEDURE THIS AFTERNOON. PT BACK UP TO UNIT, CARE RESUMED. HOURLY ROUNDING FOR PT SAFETY. PT CALLS OUT FOR NEEDS.
[2019-04-12] VITALS: BP 119/60
[2019-04-12 04:00] VITALS: BP 127/71
--- NOTE | 2019-04-12 05:57 | NUR ---
PATIENT SLEPT PART OF THE NIGHT. IV WENT BAD TOWARDS BEGINNING OF SHIFT PATIENT DID NOT WANT TO BE STUCK AGAIN. DR. LEWIS WAS CALLED STATED IT WAS OKAY TO LEAVE IV OUT AND CHANGE ANTIBIOTICS TO PO. PATIENT WAS GIVEN PAIN MEDICINE TWICE THIS SHIFT. WILL CONTINUE TO MONITOR.
--- NOTE | 2019-04-12 07:15 | NUR ---
CHANGE OF SHIFT,BEDSIDE REPORT GIVEN PATIENT SEEN AT BEDSIDE, SITTING AT EDGE OF BED ASSUMED PATIENT CARE
[2019-04-12 08:00] VITALS: BP 132/78
[2019-04-12 09:01] LABS: CALCIUM 8.1 mg/dL (8.5-10.1); POTASSIUM 4.7 mmol/L (3.5-5.1)
[2019-04-12 09:05] LABS: CREATININE 2.3 mg/dL (0.6-1.3)
[2019-04-12] MEDS ORDERED: HYDRALAZINE 2525 MG PO (09:33)
--- NOTE | 2019-04-12 10:18 | EKG ---
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1970 Requested By: Luis Carlos Dean Order Number: [id number] Rigoberto MD: Luis Carlos Dean Measurements Intervals [place] Rate: 85 P: 66 OR: 206 QRS: -16 QRSD: 160 T: 141 QT: 419 QTc: 499 Interpretive Statements Sinus rhythm Borderline prolonged OR interval Left bundle branch block Compared to ECG 04/11/2019 08:33:48 No significant changes Electronically Signed On 04-12-2019 10:18:31 CDT by Luis Carlos Dean [email or web address] <ELECTRONICALLY SIGNED> By: Luis Carlos Dean MD, [facility] [phone] Luis Carlos Dean MD, [facility] /EPI
--- NOTE | 2019-04-12 10:34 | CARD ---
[address] [address] CARDIAC CATH REPORT Name: JULIANNEYAQUELIN BENAVIDES Room: [address] IN [facility]#: [id number] Admission: 04/09/19 Attend Phys: Shankar Doty Discharge: Date of : 68 Report #: [id number] THIS REPORT FOR: //name// APPROVED REPORT Study performed: 04/10/2019 12:14:50 Patient Status: In-Patient Room #: Exam: Insertion of Dual Chamber Permanent Pacemaker Indications: 2nd Degree Mobitz II The patient is a 48 year-old male with a history of Dizziness and vertigo. Patient Info Anticoagulant Therapy: xarelto Implanted Devices: dual chamber mri compatible biotronic pacemaker and leads Procedure The patient underwent informed consent. We discussed the details of the procedure including the risks, which include, but not limited to bleeding, infection, vascular damage, cardiac perforation, and pneumothorax. He understood these risks and was willing to proceed. As such, he was brought to the EP/Cardiac Catheterization laboratory in a fasting and sedated state and prepped and draped in a sterile fashion, received IV antibiotics prior to initiation of the procedure and a venogram was performed showing patency of the left axillary vein. The patient underwent conscious sedation, with no related complications. The patient was brought to the EP/Cardiac Catheterization laboratory and the left chest and shoulder were prepped and draped in a sterile manner. During this case, Fluoroscopy and visipaque 20cc were used for imaging. The left subclavian region was infiltrated with 2% Lidocaine subcutaneous anesthesia. A transverse incision was made in the left upper chest cavity. The subcutaneous pocket was formed via blunt dissection. Percutaneous venous access was achieved and an introducer sheath was inserted into the left Subclavian vein. Through the introducer sheaths the atrial and ventricular lead wires were positioned in the right atrial appendage [place] [address] CARDIAC CATH REPORT Name: YAQUELIN WHITAKER BENAVIDES Room: [address] IN ..#: [id number] Admission: 04/09/19 Attend Phys: Shankar Doty Discharge: Date of : 68 Report #: [id number] apex respectively. Utilizing fluoroscopic guidance, the atrial and ventricular lead wires were advanced over the wires and positioned in the right atria and right ventricle respectively. Capturing and sensing thresholds were verified. The pocket was irrigated with D stat flowable solution prior to inserting the generator since the patient had been on Xarelto. Electrode Parameters P Wave: 3.2 mv R Wave: 11.5 mv Atrial Threshold: 1.8 v @ 0.4 ms Ventricular Threshold: 0.6 v @ 0.4 ms Atrial Resistance: 429 ohm Ventricular Resistance: 780 ohm Dual Chamber The atrial and ventricular leads were then secured using 0 silk sutures. The subcutaneous pocket was irrigated with ancef antibiotic solution.The atrial and ventricular leads were attached to the appropriate receptacles on the pulse generator and set screws firmly tightened to insure adequate contact and stability. The lead and pulse generator were placed into the subcutaneous pocket. Sharp and sponge counts were confirmed to be correct. At this time the pocket was closed subcutaneously with a 0 Vicryl and the skin was closed with a 4.0 Vicryl. The operative site was dressed in sterile fashion with skin affix and the patient was transferred to the floor in stable condition. Complications The patient tolerated the procedure well and there were no complications associated with the procedure. Findings Specimens Removed: No Estimated Blood Loss: 5cc Conclusion successful placement of a dual chamber pacemaker and leads <ELECTRONICALLY SIGNED> By: Luis Carlos Dean MD, FACC 04/12/19 1033 1033 1033Davishankar Dean MD, FACC /INF
[2019-04-12 11:07] VITALS: BP 132/78
[2019-04-12] MEDS ORDERED: ACETAMINOPHEN-1 EAC1 PO (11:37)
--- NOTE | 2019-04-12 11:58 | NUR ---
PATIENT DISCHARGED TO HOME DISCHARGE INSTRUCTIONS GIVEN, ACKNOWLEDGED, SIGNED COPIES GIVEN HEART MONITOR REMOVED NO IV ACCESS PATIENT ASSISTED OUT VIA WC GOOD CONDITION TO WAITING CAR
--- NOTE | 2019-04-12 14:00 | CARD ---
[facility] [address] [place] [address] CARDIAC CATH REPORT Name: JULIANNEYAQUELIN MAKAYLA Room: [address] IN [facility].#: [id number] Admission: 04/09/19 Attend Phys: Shankar Doty Discharge: 04/12/19 Date of : 68 Report #: [id number] THIS REPORT FOR: //name// CC: VIKTOR physician/PCP Xu Alicea DATE OF SERVICE: 04/11/2019 TITLE OF PROCEDURE: Repositioning of an atrial permanent pacing lead. PROCEDURE: The patient had undergone implantation of a permanent dual chamber pacemaker the day prior to the procedure. Interrogation of the pacemaker on the day of the procedure revealed that the lead had been dislodged. It was therefore decided to reposition the lead under fluoroscopy, After receiving 2 grams of Ancef intravenously, the patient was brought to the EP lab in the fasting state. The area over the permanent pacemaker generator in the left subclavicular area was cleaned with ChloraPrep and sterilely draped in the usual fashion. He was anesthetized with 1% lidocaine. The patient was given moderate sedation by administering a total of 6 mg of Versed and 100 mcg of fentanyl intravenously in divided doses. The newly closed pacemaker pocket was opened using a #11 blade. These sutures were removed. The pocket was then opened using blunt dissection. The previous Biotronik dual-chamber pacemaker generator implanted the day prior to the procedure was then removed from the pocket. A sponge soaked in Ancef was then placed into the pacemaker pocket. The generator was then removed from the atrial and ventricular pacing leads by unscrewing the set screws. The ventricular lead was tested and felt to be adequate for chronic use. Fluoroscopy was used to reveal that the screw in atrial lead had been dislodged and was now lying in the inferior right atrium. The set screw was then screwed back into the lead. The lead was then popped back to the mid right atrium. A curved stylette was then inserted through the lead allowing the tip to be readvanced into the right atrial appendage. Thresholds for sensing and capture were tested after screwing the lead in place. These were felt to be adequate for chronic use. The leads were then secured in place by using sleeve and 0 silk. The sponge was removed from the pacemaker pocket, which was irrigated with Ancef solution. The leads were then reattached to the permanent Biotronik dual-chamber pacemaker generator. The excess lead and generator then placed into the pacemaker pocket, which was closed with an interrupted suture of 0 Dexon. The subcutaneous tissue was approximated using 2-0 Dexon. The skin was then closed using a running subcutaneous suture of 4-0 Dexon. After cleaning the incision, Skin Affix was applied. The patient tolerated the procedure well and was transferred back to monitored bed in stable condition. RESULTS: The patient's underlying rhythm was noted to be normal sinus rhythm. The recently implanted ventricular lead was able to measure R-waves at 13 millivolts. Threshold for capture of the ventricle was 0.8 volts at a pulse width of 0.4 milliseconds. Resistance was measured at 721 [place] [address] CARDIAC CATH REPORT Name: JAYDAYAQUELIN GIPSON Room: [address] IN M..#: [id number] Admission: 04/09/19 Attend Phys: Shankar Doty Discharge: 04/12/19 Date of : 68 Report #: [id number] repositioned atrial lead was now able to measure P waves at 1.4 millivolts. Threshold for capture of the atrium was 0.6 volts at a pulse width of 0.4 milliseconds. Resistance while pacing the atrium was 487 ohms. The pacemaker was programmed to the dual chamber mode with a lower rate limit of 60 beats per minute. <ELECTRONICALLY SIGNED> By: Luis Carlos Dean MD, FACC 04/12/19 1400 2122 [id number] Dean MD, FACC /nt
== END 2019-04-12 11:55 | disposition home or self-care (01) | DRG 242 ==
LOC: M.ERS 21:37 → M.TBA-ER 23:25 → M.ICU 23:25 → M.2W 04-10 20:46
PROVIDERS: Internal Medicine; Internal Medicine Cardiovascular Disease; Personal Emergency Response Attendant; ADMIT Internal Medicine
DX: I44.2 Atrioventricular block, complete (principal); N17.0 Acute kidney failure with tubular necrosis; D68.59 Other primary thrombophilia; I42.9 Cardiomyopathy, unspecified; I50.22 Chronic systolic (congestive) heart failure; I13.0 Hypertensive heart and chronic kidney disease with heart failure and stage 1 through stage 4 chronic kidney disease, or unspecified chronic kidney disease; M1A.9XX1 Chronic gout, unspecified, with tophus (tophi); E78.5 Hyperlipidemia, unspecified; E66.9 Obesity, unspecified; T78.1XXA Other adverse food reactions, not elsewhere classified, initial encounter; I48.2 Chronic atrial fibrillation; E11.42 Type 2 diabetes mellitus with diabetic polyneuropathy; N18.3 Chronic kidney disease, stage 3 (moderate); D64.9 Anemia, unspecified; Z87.891 Personal history of nicotine dependence; Z68.39 Body mass index [BMI] 39.0-39.9, adult

== ENCOUNTER → 2019-06-14 | Outpatient (CLI) | payer MEDICAID ==
[~2019-06-14] MED LIST changes: +ACETAMINOPHEN-1 EAC1 PO; +HYDRALAZINE 2525 MG PO; +METOLAZONE 2.52.5 MG PO
[2019-06-14 13:30] LABS: CALCIUM 8.1 mg/dL (8.5-10.1); CREATININE 1.9 mg/dL (0.6-1.3); POTASSIUM 3.3 mmol/L (3.5-5.1)
== END ==
LOC: M.RAD 12:11
PROVIDERS: Nurse Practitioner
DX: I51.7 Cardiomegaly (principal); I50.42 Chronic combined systolic (congestive) and diastolic (congestive) heart failure; I42.0 Dilated cardiomyopathy; N18.9 Chronic kidney disease, unspecified

== ENCOUNTER 2019-07-03 09:57 | Inpatient (IN) | payer MEDICAID ==
[~2019-07-03] VITALS: Ht 193 cm; Wt 125.2 kg
[2019-07-03 10:05] VITALS: BP 123/69
[2019-07-03] MEDS ORDERED: SPIRONOLACTONE25 MG PO (10:11)
[2019-07-03] MEDS ORDERED: TRADJENTA5 MG (10:11)
[2019-07-03 10:43] LABS: HEMATOCRIT 22.6 % (42.0-52.0); MCH 26.2 pg (26.0-34.0); MCV 84.7 fL (80.0-100.0); MPV 8.8 fl. (7.2-11.1); NUCLEATED RBCS 0 /100WBC; PLATELET COUNT* 161 thou/uL (150-400); RBC 2.66 mil/uL (4.50-6.00); RDW-CV 20.9 % (10.5-14.5); WBC 17.1 thou/uL (4.0-11.0)
[2019-07-03 10:59] LABS: INFLUENZA A ANTIGEN Negative (Negative); INFLUENZA B ANTIGEN Negative (Negative)
[2019-07-03 11:02] LABS: INR 1.4; PROTIME 14.4 Seconds (9.20-11.50)
[2019-07-03 11:04] LABS: ALBUMIN 2.6 g/dL (3.4-5.0); CALCIUM 7.9 mg/dL (8.5-10.1); CK-MB MASS 0.6 ng/mL (<0.5-3.6); CREATININE 3.4 mg/dL (0.6-1.3); MAGNESIUM 1.9 mg/dL (1.8-2.4); TOTAL BILIRUBIN 2.1 mg/dL (<0.1-1.0); TOTAL PROTEIN 6.7 g/dL (6.4-8.2)
[2019-07-03 11:14] LABS: ABSOLUTE LYMPHOCYTES 1.5 thou/uL (0.8-5.3); ABSOLUTE MONOCYTES 0.5 thou/uL (0.0-1.2); ANISOCYTOSIS 2+; PLATELET ESTIMATE ADEQUATE
[2019-07-03 11:17] LABS: POTASSIUM 4.6 mmol/L (3.5-5.1)
--- NOTE | 2019-07-03 15:26 | EKG ---
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: : 1970 Requested By: Hugo Aguilar Order Number: [id number] MD: Luis Carlos Dean Measurements Intervals [place] Rate: 93 P: 66 IL: 208 QRS: -56 QRSD: 139 T: 107 QT: 378 QTc: 471 Interpretive Statements Sinus rhythm left axis Prolonged [place] interval Left bundle branch block Baseline wander in lead(s) V2 Compared to ECG 04/12/2019 08:16:52 No significant changes Electronically Signed On 07-03-2019 15:26:41 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
[2019-07-03 15:33] VITALS: BP 120/68
[2019-07-03 19:30] VITALS: BP 114/61
--- NOTE | 2019-07-03 19:30 | NUR ---
pt arrived to room 219 at approx 1715, pt oriented to room and staff. pt pleasant but refusing to have blood sugar checked and refused lab draw. pt has wound to left foot, necrotic, wound consult placed, dr Davidson notified. Admission done as charted, sr on the monitor. pt sleeping at this time. report given to Aman VALLEJO
[2019-07-04 04:00] VITALS: BP 140/75
--- NOTE | 2019-07-04 07:02 | NUR ---
PT REFUSED CARE ALL NIGHT, REFUSED LABS, SAID WOULD DO LABS AT A LATER TIME.
[2019-07-04 07:39] LABS: HEMATOCRIT 21.8 % (42.0-52.0); MCH 26.4 pg (26.0-34.0); MCHC 31.3 g/dL (28.0-37.0); MCV 84.5 fL (80.0-100.0); MPV 8.5 fl. (7.2-11.1); RBC 2.58 mil/uL (4.50-6.00); RDW-CV 20.4 % (10.5-14.5); WBC 13.8 thou/uL (4.0-11.0)
[2019-07-04 07:51] LABS: ALBUMIN 2.4 g/dL (3.4-5.0); CALCIUM 8.3 mg/dL (8.5-10.1); CREATININE 3.5 mg/dL (0.6-1.3); HEMOGLOBIN 6.8 gm/dL (14.0-18.0); MAGNESIUM 2.2 mg/dL (1.8-2.4); POTASSIUM 4.6 mmol/L (3.5-5.1); TOTAL BILIRUBIN 0.9 mg/dL (<0.1-1.0); TOTAL PROTEIN 6.6 g/dL (6.4-8.2)
[2019-07-04 08:00] VITALS: BP 136/79
[2019-07-04 10:28] VITALS: BP 122/77; BP 123/79; BP 138/82
--- NOTE | 2019-07-04 11:25 | NUR ---
Pt is A&O. Resides at home with his mom. Independent. Pt has a walker that he can use for mobility. No hx of HH or SNF. Pt going to [facility] today for a VQ scan, will return afterwards. US completed all necessary paperwork and faxed ambulance forms. Following.
--- NOTE | 2019-07-04 13:56 | NUR ---
WOUND CARE NOTE: CONSULT RECEIVED FOR LEFT FOOT DFU PATIENT IS OFFSITE AT THIS TIME AND PLANS FOR SURGERY LATER TODAY. WILL DEFER ASSESSMENT AT THIS TIME.
[2019-07-04 15:25] LABS: HEMATOCRIT 25.2 % (42.0-52.0); HEMOGLOBIN 7.8 gm/dL (14.0-18.0)
--- NOTE | 2019-07-04 16:56 | NUR ---
ASSUMED PT CARE AT 0730, FULL ASSESMENT DONE CHARTED. PT A/O X4, DENIES PAIN, DENIES COUGH. PTS WOUND ASSESED BY THIS AM, SURGERY FOR THIS EVENING. PT NPO. PT RECEIVED 1 UNIT PRBC'S, AND TRANSFERED TO [facility] FOR VQ SCAN. PT TOLERATED WELL. PT DOES REFUSE CARES, INCLUDING CHECKING SKIN ON BOTTOM, HAVING BS CHECKED, VS CHECKED. PT IS REASONABLE WHEN I EDUCATE HIM ON REASONS WHY THE TEST ARE BEING DONE. PT UP WITH ASSIST, NEEDS REEDUCATION ON FALL PRECAUTIONS. BED ALARM ON. PT TAKEN TO SURGERY AT APPROX 1530. REPORT GIVEN TO MAGEN VALLEJO.
[2019-07-04 19:30] VITALS: BP 112/54
--- NOTE | 2019-07-05 06:34 | NUR ---
PT REFUSES TO STAY IN BED OR OFF FOOT FOR FIRST HALF OF SHIFT, PT STARTED TO BLEED THROUGH BANDAGES, BANDAGE REINFORCED AND RECHECKED NOT BLEED THROUGH NOTED. PT REFUSES TO HAVE BLOOD DRAWN OR HAVE VITALS TAKEN AT NITE TIME. PT WILL NOT ALOW CARDIAC STICKERS TO BE REPLACED BECAUSE "THEY ARE JUST GOING TO FALL OFF AGIAN". PT CURRTLY HAS AGREED TO STOP WALKING ON HIS FOOT BUT STILL WANTS TO STAND AND PIVOT TO BEDSIDE COMMODE.
[2019-07-05 07:41] LABS: HEMATOCRIT 22.4 % (42.0-52.0); HEMOGLOBIN 7.1 gm/dL (14.0-18.0); MCH 26.7 pg (26.0-34.0); MCHC 31.5 g/dL (28.0-37.0); MPV 8.8 fl. (7.2-11.1); RBC 2.64 mil/uL (4.50-6.00); RDW-CV 20.7 % (10.5-14.5); WBC 9.5 thou/uL (4.0-11.0)
[2019-07-05 07:48] LABS: CALCIUM 7.9 mg/dL (8.5-10.1); CREATININE 3.1 mg/dL (0.6-1.3); MAGNESIUM 2.4 mg/dL (1.8-2.4); POTASSIUM 4.7 mmol/L (3.5-5.1)
[2019-07-05 08:00] VITALS: BP 124/62
[2019-07-05 12:44] VITALS: BP 121/67
--- NOTE | 2019-07-05 13:57 | NUR ---
ASSUMED CARE OF PT AT 0730. PT A&0X4, COOPERATIVE AND PLEASANT THIS AM. COMPLIANT WITH MEDICATIONS THIS AM. THIS AFTERNOON PT REFUSING NOON BLOOD GLUCOSE CHECK. EDUCATION GIVEN. TRACING SR WITH FIRST DEGREE BBB ON THE ARCHIVIST ECONOMIC HISTORY. ON RA SAT UPPER 90'S. PT DENIES ANY SHORTNESS OF BREATH OR PAIN AT THIS TIME. PT UP WITH 1 ASSIST NWB LLE, PT TO PIVOT TO COMMODE TRANSFERS. CARDIOLOGY HERE TO SEE PT. LASIX CHANGED FROM BID TO DAILY. HANON HERE TO SEE PT- ORDERS TO LEAVE DRESSING IN PLACE-WILL REASSESS ON WEDNESDAY WITH POSSIBLE WOUND VAC PLACEMENT. PT EDUCATION ON IMPORTANCE OF NWB STATUS- PT COMMUNICATES UNDERSTANDING OF TEACHING. PT GOAL FOR TODAY IS COMPLIANCE WITH CARE, MAINTAIN NWB STATUS TO LLE AND IV ABX. AM ASSESSMENT CHARTED. MEDICATIONS PER SEP. PT REPOSITIONS SELF WITH REMINDERS. HOURLY ROUNDING OBSERVED. BED IN LOW POSITION. CALL LIGHT WITHIN REACH. WILL CONTINUE PLAN OF CARE.
--- NOTE | 2019-07-05 14:59 | CON ---
[address] [address] CONSULTATION Name: JULIANNEYAQUELIN BENAVIDES Room: [address] IN M.R.#: [id number] Admission: 07/03/19 Attend Phys: Cherelle Davidson MD Discharge: Date of : 68 Report #: [id number] THIS REPORT FOR: //name// CC: Luis Carlos Dean [facility] physician/PCP Cherelle Davidson DATE OF SERVICE: 07/03/2019 HISTORY OF PRESENT ILLNESS: The patient is a 49-year-old single white male who I was asked to see in the hospital today after complaining of shortness of breath. The patient initially presented here at [place] in 12/2007 with shortness of breath. He has been followed at [facility] and was told he had congestive heart failure. He apparently never had a heart catheterization. He had been told in the past he had an irregular heartbeat and was placed on Xarelto. When he presented to [facility] [place] a year ago, he was found to be in congestive heart failure. He underwent an echocardiogram at that time showing ejection fraction of 30-35%. He then presented in 03/2019 with a lightheaded spell. He was found to have evidence of high-degree atrioventricular block. I then placed a permanent dual chamber pacemaker in March. Unfortunately, the atrial lead had to be repositioned because of dislodgement. Recently, he has had increasing shortness of breath. His diuretics were increased by my nurse practitioner. Because of shortness of breath, he finally came to the Emergency Room today and is admitted for further evaluation and treatment. PAST MEDICAL HISTORY: Significant for ____ surgical procedures. He has a long history of diabetes, hypertension, hyperlipidemia, and paroxysmal atrial fibrillation. CURRENT MEDICATIONS: Include allopurinol, carvedilol, Lasix, Tradjenta, metformin, Zaroxolyn as needed, potassium, and Xarelto. ALLERGIES: He had no known drug allergies. FAMILY HISTORY: Negative for heart disease. SOCIAL HISTORY: He is , lives with his mother in [place], [place]. 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 Quit smoking years ago. No alcohol abuse, no illicit drug use. REVIEW OF SYSTEMS: No history of stroke, asthma, or peptic ulcer disease. He has had sleep apnea. He has chronic kidney disease. No cancer. No psychiatric illness. PHYSICAL EXAMINATION: [place] [address] CONSULTATION Name: YAQUELIN WHITAKER Room: [address]#: [id number] Admission: 07/03/19 Attend Phys: Cherelle Davidson MD Discharge: Date of : 68 Report #: [id number] GENERAL: Revealed a large middle-aged male who appeared in no acute distress. VITAL SIGNS: He had a blood pressure of 120/70, pulse of 90. HEENT: Anicteric. Conjunctivae are pink. Mucous membranes are moist. CHEST: Revealed decreased breath sounds at bases. CARDIOVASCULAR: Regular rate and rhythm. ABDOMEN: Obese. EXTREMITIES: Had trace edema. SKIN: Cool and dry. NEUROLOGIC: Nonfocal. In the Emergency Room today, he had an ECG that showed P-wave sensing and ventricular capture. His workup in the Emergency Room today, he had a chest x-ray that showed cardiomegaly, pulmonary edema. LABORATORY WORK: Sodium 135, BUN 64, and creatinine 3.4. It has been as high as 3.8 in the past. Liver function studies were normal. [place] 0[place]06[place] [address]. His white blood cell count 17.1, hemoglobin 7. His hematocrit was 7.7 a year ago. IMPRESSION AND RECOMMENDATIONS: 1. Nonischemic cardiomyopathy. The patient has been on a beta alannah. I would not recommend an KINGSTON inhibitor or ARB because of chronic kidney disease. The patient is on hydralazine. I would add nitrates. 2. Chronic kidney disease. The patient may require dialysis. 3. Obesity. 4. Previous history of atrial fibrillation. The patient is on Xarelto. 5. Diabetes. 6. Sleep apnea. <ELECTRONICALLY SIGNED> By: Luis Carlos Dean MD, FACC 07/05/19 1459 [id number] Dean MD, FACC /nt
--- NOTE | 2019-07-05 15:56 | CON ---
[address] [address] CONSULTATION Name: YAQUELIN WHITAKER Room: [address] ADM IN M.R.#: [id number] Admission: 07/03/19 Attend Phys: Cherelle Davidson MD Discharge: Date of : 68 Report #: [id number] THIS REPORT FOR: //name// CC: Luis Carlos Dean [facility] physician/PCP Cherelle Davidson DATE OF SERVICE: 07/04/2019 NEPHROLOGY CONSULTATION LOCATION: The patient is at [facility], room 219. I am asked to see this 49-year-old gentleman at the request of Dr. Cherelle Davidson for acute kidney injury. CHIEF COMPLAINT: Shortness of air and fever. HISTORY OF PRESENT ILLNESS: The patient presented to the ED with chest heaviness, cough and shortness of air. He has also had several days of lower extremity edema, which was worsening and had fever started the day before admission. He had not been taking in as much as he normally does orally. He has multiple past medical issues including prior acute renal failure, chronic kidney disease stage 3, atrial fibrillation, anemia, cardiomyopathy, cellulitis of the left lower leg, systolic congestive heart failure, and pulmonary edema on a recurring basis. History of complete heart block, type 2 DM. History of junctional tachycardia, recurrent left leg ulcerations. He has been seen in consultation by the Cardiology Service and others. Dr. Dean saw him yesterday. He noted that the patient has been seen at [facility], followed for CHF. He has not been noted to have had a heart catheterization in the past. He has been told he has had an irregular heart rhythm and has been in CHF. He had an echocardiogram at that time a year ago at [place] that showed an LVEF of 30%-35%. He had a dual chamber pacemaker placed in March of this year for high-degree AV block. The atrial lead had to be repositioned because of dislodgement. He has had a long history of type 2 DM. He has just returned from having two toes amputated according to the nurse in his room presently. He has hyperlipidemia, PAF. FAMILY HISTORY: Negative for familial renal disease or familial cardiac disease. It is positive for hypertension and DM. SOCIAL HISTORY: He is . He lives with his mother in [place], [place]. 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 He used to use tobacco, but quit years ago. He has no alcohol or drug use history. ALLERGIES: [place] [address] CONSULTATION Name: YAQUELIN WHITAKER Room: [address] IN ..#: [id number] Admission: 07/03/19 Attend Phys: Cherelle Davidson MD Discharge: Date of : 68 Report #: [id number] HOME MEDICATIONS: Have included fluticasone nasal spray b.i.d., ferrous sulfate 325 mg b.i.d., linagliptin 5 mg daily q.a.m., potassium chloride 10 mEq daily, metolazone 2.5 mg daily, hydralazine 25 mg t.i.d. with meals, acetaminophen plus codeine 1-2 every 4 hours p.r.n. His other medications have included allopurinol 300 mg daily, Xarelto 15 mg with dinner, metformin 500 mg b.i.d. with meals, carvedilol 25 mg b.i.d., spironolactone 25 mg daily, acetaminophen one every 6 hours p.r.n. He does not recall seeing a renal physician nor do I see any consults in the records here, though his creatinine has been elevated in the past when he had been here. REVIEW OF SYSTEMS: HEENT: No recent changes in vision or hearing. CARDIAC: Positive for all described above including dual-chamber pacemaker placement, but with an atrial lead that had to be repositioned because of dislodgement. He has a chronic, depressed LV function and systolic congestive heart failure. He has chest heaviness at the time of admission, accompanied by shortness of breath. No chest pain at present. PULMONARY: Shortness of air on admission, not severe at the time of this examination. Denies, however, any shortness of breath at this point. He has no diagnosis noted of obstructive sleep apnea or COPD. GASTROINTESTINAL: No nausea, vomiting, diarrhea, constipation. He has had a poor appetite lately. GENITOURINARY: Denies urinary retention, chronic kidney disease stage 3, apparently has not seen a renal physician here in the past. No reported urologic problems. HEMATOLOGIC AND LYMPHATIC: No malignancy history, positive anemia. In fact, his hemoglobin on admission was quite low at 7 and fell to 6.8 this morning. MUSCULOSKELETAL: Pain in his left leg, weakness symmetrically. PSYCHIATRIC: Negative. ENDOCRINE: Type 2 DM. No thyroid history. NEUROLOGIC: No TIA, CVA, Parkinson's disease or seizure disorder. Other 14-point review of systems as above. PHYSICAL EXAMINATION: GENERAL: He is seen postoperatively. He awakens easily. He is breathing easier. HEENT: Atraumatic, normocephalic. NECK: Supple. Very difficult to trial court judge his jugular venous as his neck is somewhat fleshy. CHEST: Shows diminished breath sounds in the bases and some bibasilar faint crackles. HEART: Shows S1, S2 present without murmurs or rubs. ABDOMEN: Obese, soft, nontender, positive bowel sounds. [place] [id number] CONSULTATION Name: YAQUELIN WHITAKER Room: [address] IN [facility].#: [id number] Admission: 07/03/19 Attend Phys: Cherelle Davidson MD Discharge: Date of : 68 Report #: [id number] EXTREMITIES: Show left lower extremity is dressed. He has bilateral edema about 2+. Calves are soft. He has 2+ femoral pulses distally. His extremities are perfused. Proximal pulses are 2+ and equal. NEUROLOGIC: Cranial nerves, sensory, motor appeared to be at his recent baseline. SKIN: Shows no lesions or rashes. PSYCHIATRIC: He is cooperative to exam. LABORATORY DATA: Shows a white count of 13,800, hemoglobin down to 6.8 today, hematocrit 21.8, and platelets 139,000. Coags show a PT of 14.4, INR 1.1, PTT 45. Chemistries show a sodium this morning of 135, potassium 4.6, chloride 100, CO2 24, BUN and creatinine 82 and 3.5, creatinine was 3.4 yesterday, EGFR 19, calcium 8.3, magnesium 2.2. Liver function studies are not elevated. His albumin is 2.4. His urine has not been received for any testing. IMAGING STUDIES: Include a renal ultrasound that was done yesterday that shows unremarkable urinary bladder and no hydronephrosis. IMPRESSION: 1. Acute kidney injury in the setting of pulmonary edema and systolic heart failure, acute kidney injury is likely related to diminished renal perfusion. 2. Depressed left ventricular function with a recent left ventricular ejection fraction of 30%-35%. 3. Prior baseline stage 3 chronic kidney disease with a best serum creatinine in the recent past of 1.9 and an EGFR of 38 mL per minute. 4. Marked anemia, likely related both to chronic disease and other etiologies. 5. Atrioventricular block, status post cardiac pacemaker implantation. 6. Obstructive sleep apnea. 7. Anemia as above. Xarelto has been discontinued. 8. Diabetic foot ulceration, status post some lower extremity digital amputations today. 9. Atrial fibrillation, chronic. 10. Type 2 diabetes mellitus. 11. History of intermittent hypertension, presently he is not on any KINGSTON 1 or ARB medications. 12. Obesity. 13. Left lower leg cellulitis. 14. Iron deficiency. 15. Hyperuricemia history. PLAN: 1. The patient is not on any nephrotoxic agents at present. 2. We will check urine eosinophils. 3. We will check protein electrophoresis and assess for any [place] [address] CONSULTATION Name: JULIANNEYAQUELIN Room: [address] IN M.R.#: [id number] Admission: 07/03/19 Attend Phys: Cherelle Davidson MD Discharge: Date of : 68 Report #: [id number] 4. We will try and avoid hypotension and hypoperfusion. 5. Check urine for eosinophils. Further recommendations to follow. <ELECTRONICALLY SIGNED> By: Quiana Tucker MD 07/05/19 1556 [id number] Tucker MD /nt
[2019-07-05 17:09] VITALS: BP 135/60
--- NOTE | 2019-07-05 18:19 | OP ---
[address] [address] OPERATIVE REPORT Name: YAQUELIN WHITAKER Room: [address] IN M.R.#: [id number] Admission: 07/03/19 Attend Phys: Cherelle Davidson MD Discharge: Date of : 68 Report #: [id number] THIS REPORT FOR: //name// CC: Luis Carlos HOANG physician/PCP Cherelle Davidson DATE OF SERVICE: 07/04/2019 SURGEON: Kayleen Carvalho DPM [employer] VICE PRESIDENT: None. PREOPERATIVE DIAGNOSES: Osteomyelitis with gas gangrene, left fifth ray. POSTOPERATIVE DIAGNOSES: Osteomyelitis with gas gangrene, left fifth ray, with the addition of infection and abscess including the left fourth ray. PATHOLOGY: Left fourth and fifth partial rays and deep cultures, aerobic and anaerobic. ANESTHESIA: General anesthetic. HEMOSTASIS: Left high-calf tourniquet set at 250 mmHg pressure. ESTIMATED BLOOD LOSS: Less than 15 mL. MATERIALS: None. DESCRIPTION OF PROCEDURE: The patient was brought to the OR and placed in a supine position, at which time, anesthesia was administered. A well-padded pneumatic tourniquet was placed on the left proximal calf. The patient was prepped and draped in the usual sterile and aseptic manner. A timeout was called, patient identified along with the extremity, procedures to be performed, any allergies and any precautions to be taken. All parties in the OR were in agreement. Attention was then directed to the left foot where the calf tourniquet was elevated to 250 mmHg pressure. Attention was then directed to the left lateral forefoot where a circumferential incision was made including the gangrenous left fifth toe. This was brought all the way down through the interspace and proximally to include resection of the devitalized skin and plantar ulceration. The gas immediately released from the tissue with dissection and removal of this segment. Royer pus was found to be running from the surgical wound. The pus was coming out of the soft tissue surrounding the fourth metatarsal and the fourth toe. All devitalized tissue was removed. Proximal purulent pockets were opened and drained, any devitalized tissue within these pockets were removed. The physician then made the [place] [address] OPERATIVE REPORT Name: JULIANNEYAQUELINKAITLIN BENAVIDES Room: [address] ADM IN ..#: [id number] Admission: 07/03/19 Attend Phys: Cherelle Davidson MD Discharge: Date of : 68 Report #: [id number] the fourth toe and included a partial fourth ray amputation as there was no soft tissue coverage and the abscess tracked into the third interspace. Once the fourth ray was removed, this was sent separately. Then, the fifth ray and deep cultures were taken, both aerobic and anaerobic. Next, the tissue was further cleaned of any devitalized tissue. Deep fasciotomies were performed to open up the third interspace distally and proximally extending to the base of the third metatarsophalangeal joint. Next, utilizing sterile saline and antibiotic solution, the surgical site was irrigated. It was noted the tissues appeared more normal at this point. The surgical site was inspected to ensure removal of all devitalized tissue. Next, the wound was then packed with half-inch iodoform gauze. The foot was dressed with several ABDs, followed by soft roll, Kerlix and Avelino wraps in a pressure dressing. The tourniquet was dropped. Vascular status returned to the remaining three toes, bleed through was not identified before the patient left the OR. Post-procedure, the patient left the OR with vital signs stable and vascular status intact to the left foot. <ELECTRONICALLY SIGNED> By: Kayleen Carvalho DPM 07/05/19 1819 [id number] JOSE Carvalho /nt
--- NOTE | 2019-07-05 18:43 | NUR ---
NO ACUTE CHANGES THROUGHOUT SHIFT. REFER TO CHARTING. PT COMPLIANT ON AND OFF THROUGHOUT SHIFT. URINALYSIS OBTAINED AND SENT TO LAB. IV IRON GIVEN. PT EDUCATED ON IMPORTANCE OF NWB STATUS. PT COMMUNICATES UNDERSTANDING. PT REFUSED OCCUPATIONAL THERAPY, WORKED WITH PHYSICAL THERAPY THIS AM. DENIES ANY PAIN OR SHORTNESS OF BREATH THROUGHOUT AFTERNOON. CONTINUES TO TRACE SR WITH BBB FIRST DEGREE/ V PACED ON THE CIGARETTE PACKER. ON RA SAT UPPER 90'S. MEDICATIONS PER SEP. PT REPOSITIONS SELF WITH REMINDERS. HOURLY ROUNDING OBSERVED. BED IN LOW POSITION. CALL LIGHT WITHIN REACH. WILL CONTINUE PLAN OF CARE.
[2019-07-05 18:48] LABS: URINE BILIRUBIN NEGATIVE (Negative); URINE BLOOD NEGATIVE (Negative); URINE CLARITY CLEAR; URINE COLOR YELLOW; URINE GLUCOSE-RANDOM NEGATIVE (Negative); URINE KETONES NEGATIVE (Negative); URINE LEUKOCYTES-REFLEX NEGATIVE (Negative); URINE NITRITE-REFLEX NEGATIVE (Negative); URINE PROTEIN 1+ (Negative); URINE UROBILINOGEN 0.2 E.U./dl (0.2-1.0)
[2019-07-05 20:20] VITALS: BP 110/80
--- NOTE | 2019-07-06 04:26 | NUR ---
PATIENT REFUSED BLOOD SUGAR CHECK AT HS AND VITAL SIGNS AT 0000. EDUCATION PATIENT ON IMPORTANCE OF MONITORING BUT PATIENT STATES "I KNOW MY BODY AND I AM FINE. MY BLOOD SUGAR IS ALWAYS BETWEEN 230-260." PATIENT ATTEMPTED TO REFUSE VANCOMYCIN BUT AFTER DISCUSSION, PATIENT AGREED TO RECEIVE DOSE. DRESSING TO LLE REMAINS IN PLACE, DID NOT HAVE TO REINFORCE OVERNIGHT. DENIES PAIN AND DISCOMFORT. CALL LIGHT WITHIN REACH
[2019-07-06 04:59] VITALS: BP 111/61
[2019-07-06 08:05] LABS: HEMATOCRIT 25.2 % (42.0-52.0); HEMOGLOBIN 7.8 gm/dL (14.0-18.0); MCH 26.2 pg (26.0-34.0); MCHC 30.8 g/dL (28.0-37.0); MPV 8.8 fl. (7.2-11.1); RBC 2.97 mil/uL (4.50-6.00); RDW-CV 20.2 % (10.5-14.5); WBC 7.8 thou/uL (4.0-11.0)
[2019-07-06 08:30] LABS: ALBUMIN 2.6 g/dL (3.4-5.0); CALCIUM 8.1 mg/dL (8.5-10.1); CREATININE 2.5 mg/dL (0.6-1.3); MAGNESIUM 2.3 mg/dL (1.8-2.4); POTASSIUM 4.4 mmol/L (3.5-5.1); TOTAL BILIRUBIN 0.5 mg/dL (<0.1-1.0); TOTAL PROTEIN 6.7 g/dL (6.4-8.2)
[2019-07-06 08:57] VITALS: BP 144/84
--- NOTE | 2019-07-06 12:06 | CON ---
[address] [address] CONSULTATION Name: YAQUELIN WHITAKER Room: [address] IN M.R.#: [id number] Admission: 07/03/19 Attend Phys: Cherelle Davidson MD Discharge: Date of : 68 Report #: [id number] THIS REPORT FOR: //name// CC: Luis Carlos Dean [facility] physician/PCP Cherelle Davidson DATE OF SERVICE: 07/05/2019 INFECTIOUS DISEASE CONSULTATION ATTENDING PHYSICIAN: Dr. Davidson. REASON FOR EVALUATION: Left foot necrotizing infection associated osteomyelitis involving the fourth and fifth toes in setting of uncontrolled diabetes mellitus. HISTORY OF PRESENT ILLNESS: Chart reviewed, patient examined. This is a 49-year-old presented in the Emergency Room with chest heaviness, cough and dyspnea, lower extremity edema, which had been worsening, did develop some fevers and progressive weakness. He was evaluated. Initial troponin was unremarkable. Influenza was negative. CBC, white count was elevated at 17.1 with a fairly profound anemia with hemoglobin of 7. Lactic acid 1.9. He did have a creatinine of 3.4 and albumin of 2.6. Chest x-ray was consistent with congestive heart failure. Venous Dopplers were unremarkable. He was noted to have gangrenous changes noted in distal left lower extremity, and it was visualized. Plain film showed extensive gas involving the proximal fifth metatarsophalangeal joint in the adjacent toe as a result. There was concern for necrotizing process, underwent urgent left fourth, fifth partial ray amputations yesterday. Path is pending. Cultures are pending. He was seen postoperative. He is not overtly unstable at this point. He has been started empirically on therapy with vancomycin and ceftriaxone. ALLERGIES: None known. MEDICATIONS: Include furosemide, vancomycin dose for renal failure, allopurinol, linagliptin, isosorbide mononitrate, ceftriaxone, carvedilol, metformin. PAST MEDICAL HISTORY: Diabetes mellitus, uncontrolled, history of cardiomyopathy with congestive heart failure, gout, atrial fibrillation, advanced kidney disease stage 3, chronic anemia, hypertension, peripheral neuropathy. SOCIAL HISTORY: Former smoker. No ethanol. [place] [address] CONSULTATION Name: YAQUELIN WHITAKERROE Room: [address] IN [facility]#: [id number] Admission: 07/03/19 Attend Phys: Cherelle Davidson MD Discharge: Date of : 68 Report #: [id number] FAMILY HISTORY: Noncontributory. REVIEW OF SYSTEMS: Otherwise noted in the above history of present illness. PHYSICAL EXAMINATION: GENERAL: He is somewhat lethargic. He does arouse, mjig-do-wkftictw distress, appears to be reasonably well nourished. VITAL SIGNS: Temperature 98.3, pulse 87, respirations 19, blood pressure 121/67. SKIN: Warm, dry, no rashes. HEENT: Normocephalic. Extraocular muscles intact. NECK: Supple. LUNGS: Diminished breath sounds overall, few scattered crackles at the bases. HEART: Regular. I do not appreciate a murmur. ABDOMEN: Obese, distended, soft, nontender. EXTREMITIES: Left lower extremity has a surgical dressing in place that was left undisturbed. GENITOURIARY: Deferred. RECTAL: Deferred. LABORATORY DATA: Blood cultures sterile thus far. Prealbumin of 16.4. Electrolytes: Sodium 138, potassium 4.7, chloride 103, bicarbonate is 24, anion gap of 11, BUN and creatinine 94 and 3.1. Glucose of 268. CBC: White count of 9.5, H and H 7.1 and 22.4, platelets of 151. I reviewed operative note. ASSESSMENT: Necrotizing infection involving the deep structures including what appears to be osteomyelitis. We will continue broad-spectrum antimicrobial therapy. Dr. Carvalho is going to reevaluate on 07/07. We will try to be available for that. Continue wound care, compression, elevation as prescribed. We will add incentive spirometry. Would be somewhat concerned about infectious complications going forward certainly blood sugar control needs to be improved, optimize his nutrition. <ELECTRONICALLY SIGNED> By: Serge Viramontes MD 07/06/19 1206 [id number] [id number] Viramontes MD /nt
[2019-07-06 12:31] VITALS: BP 116/71
--- NOTE | 2019-07-06 13:56 | NUR ---
WOUND CARE NOTE: CONSULT RECEIVED FOR LEFT FOOT DFU. PATIENT IS S/P SURGICAL DEBRIDEMENT/AMPUTATION. DRESSING WAS CHANGED WITH PODIATRY. WOUND MEASURES 5.3X7.8X3.5 KALYN-WOUND IS EDEMATOUS AND INFLAMMED. WOUND BED IS MOIST, PINK, TENDON AND BONE PRESENT. AREA WAS GENTLY CLEANSED WITH WOUND CLEANSER, PATTED DRY. PACKED WITH AQUACEL AG AND COVERED WITH ABD. SECURED WITH KERLIX AND KINGSTON. PATIENT TOLERATED DRESSING CHANGE WELL. 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 RECOMMEND KEEP LEG ELEVATED ENCOURAGE GOOD NUTRTION/HYDRATION TIGHT BLOOD GLUCOSE CONTROL NON-WEIGHTBEARING OF LEFT FOOT
--- NOTE | 2019-07-06 14:00 | NUR ---
CM faxed Pt's wound care vac auth form to [employer]
--- NOTE | 2019-07-06 14:20 | NUR ---
VSS, ASSUMED CARE IN THE AM, ASSESSMENT PERFORMED AND CHARTED, FALL PRECAUTIONS IN PLACE, PT IS ON RA AND IS TRACING SE C BBB, HE GET UP WITH ONE STAND BY, BUT NONE-WIEGHT BEARING ON LEFT LEG, PT GOAL IS TO WORK WITH PT/OT, WILL FOLLOW WITH PLAN OF CARE.
[2019-07-06 20:40] VITALS: BP 142/75
[2019-07-07 00:10] VITALS: BP 140/80
[2019-07-07 04:00] VITALS: BP 150/81
--- NOTE | 2019-07-07 05:22 | NUR ---
PATIENT DENIES PAIN IN LLE BUT DID HAVE BACK PAIN RELIEVED WITH MEDICATION PER MAR AND RELAXATION. PATIENT IRRITABLE AND REQUESTING TO BE LEFT ALONE DURING THE NIGHT. ATTEMPTED TO CLUSTER ALL CARE TO PROMOTE REST. PATIENT NON-COMPLIANT WITH ELEVATING LLE. EDUCATED PATIENT ON POST OP INSTRUCTIONS BUT PATIENT CONTINUES TO DANGLE FEET OFTEN AND SLEEPING WITH FEET DANGLING OFF BED. PATIENT TO HAVE PICC INSERTED TODAY AND WOUND VAC PLACED. PATIENT VERBALIZES UNDERSTANDING. CALL LIGHT WITHIN REACH
[2019-07-07 07:30] LABS: HEMATOCRIT 25.8 % (42.0-52.0); HEMOGLOBIN 8.1 gm/dL (14.0-18.0); MCH 26.4 pg (26.0-34.0); MCHC 31.3 g/dL (28.0-37.0); MCV 84.1 fL (80.0-100.0); MPV 8.5 fl. (7.2-11.1); RBC 3.07 mil/uL (4.50-6.00); RDW-CV 20.2 % (10.5-14.5); WBC 8.4 thou/uL (4.0-11.0)
[2019-07-07 07:47] LABS: ALBUMIN 2.6 g/dL (3.4-5.0); CALCIUM 8.3 mg/dL (8.5-10.1); CREATININE 2.2 mg/dL (0.6-1.3); MAGNESIUM 2.3 mg/dL (1.8-2.4); POTASSIUM 4.8 mmol/L (3.5-5.1); TOTAL BILIRUBIN 0.5 mg/dL (<0.1-1.0); TOTAL PROTEIN 6.8 g/dL (6.4-8.2)
[2019-07-07 08:00] VITALS: BP 150/86
--- NOTE | 2019-07-07 11:07 | NUR ---
ASSUMED CARE OF PT AT 0730. PT SITTING AT EDGE OF BED WAITING FOR BREAKFAST. PT A&0X4, COMPLAINS OF PAIN TO BACK. TREATED WITH PRN NORCO WITH RELIEF. PT COOPERATIVE WITH CARE AND MEDICATIONS THIS AM. DENIES ANY SHORTNESS OF BREATH. MED SURG STATUS. ON RA SAT UPPER 90'S. PT UP WITH 1 ASSIST-NWB LLE. PT ENCOURAGED TO ELEVATED LLE. COMMUNICATES UNDERSTANDING. PT TO GET PICC LINE PLACEMENT TODAY. PT GOAL FOR TODAY IS COMPLIANCE WITH MEDICATIONS AND WEIGHT BEARING STATUS, WORK WITH PHYSICAL AND OCCUPATIONAL THERAPY AND PICC LINE PLACEMENT. AM ASSESSMENT CHARTED. MEDICATIONS PER SEP. PT REPOSITIONS SELF. HOURLY ROUNDING OBSERVED. BED IN LOW POSITION. CALL LIGHT WITHIN REACH. WILL CONTINUE PLAN OF CARE.
--- NOTE | 2019-07-07 12:50 | NUR ---
Spoke with Dr Allison recommending a LTAC consult. CM contacted [facility] at [facility] to come out to complete info visit this afternoon. Wound vac delivered today. Anticipate dc early next week.
--- NOTE | 2019-07-07 13:43 | NUR ---
Nutrition: Pt admitted with cardiomyopathy. H/o DM, CHF, heart block, gout, HTN. Wt, per [facility], usually fluctuates 310-297#. Current wt is 334#. Pt seen for high BMI. Has wound VAC. RX: glipizide, linagliptin. Albumin 2.6, prealb 26.3, BUN 85, cr 2.2, BG 164. Fair appetite. RD will order Jorge A for wound care and increased protein needs. Mild risk.
--- NOTE | 2019-07-07 14:51 | NUR ---
CHF Medication Teaching: Met with patient to discuss HF medications: Carvedilol, Furosemide, Spironolactone, Hydralazine and Isosorbide Mononitrate. Each medication was discussed including how and when to take, how the medications work, and possible side effects. The patient indicates they have no questions at this time. Pharmacy is available for further questions/needs. Thank you.
--- NOTE | 2019-07-07 15:55 | NUR ---
RIGHT CEPHALIC VESSEL ACCESSED FOR SINGLE LUMEN PICC. LINE PRE-TRIMMED TO 40CM AND ADVANCED TO THE ZERO FELIBERTO WITH NO RESISTANCE MET. UPPER ARM CIRCUMFERENCE ABOVE INSERTION SITE= 15 1/2". SHERLOCK MAGNET AND 3CG CONFIRMATION OF TIP TERMINATION AT THE CAVOATRIAL JUNCTION APPRECIATED. GUIDEWIRE REMOVED, LINE FLUSHED AND INSERTION SITE DRESSED. REPORT GIVEN TO KALANI VALLEJO.
--- NOTE | 2019-07-07 17:15 | NUR ---
NO ACUTE CHANGES THROUGHOUT SHIFT. REFER TO CHARTING. PT SLOWLY PROGRESSING TOWARDS GOALS. COMPLAINED OF PAIN TO BACK-TREATED WITH PRN NORCO WITH RELIEF. PICC LINE PLACED TO RIGHT UPPER ARM SINGLE LUMEN. PT WORKED WITH PHYSICAL THERAPY TODAY, REFUSED TO WORK WITH OCCUPATIONAL THERAPY. EPOGEN STARTED TODAY. DRESSING CHANGED BY WOUND CARE NURSE, JEN. MED SURG STATUS. ON RA SAT UPPER 90'S. DENIES ANY SHORTNESS OF BREATH. MOTHER AT BEDSIDE THIS AFTERNOON AND UPDATED ON CURRENT PLAN OF CARE. PLAN IS FOR DISCHARGE TO [facility] ON TUESDAY 07/10. MEDICATIONS PER SEP. PT REPOSITIONS SELF. HOURLY ROUNDING OBSERVED. BED IN LOW POSITION. CALL LIGHT WITHIN REACH. WILL CONTINUE PLAN OF CARE.
[2019-07-07 20:00] VITALS: BP 132/88
--- NOTE | 2019-07-07 22:06 | PATH ---
[address] [address] PATHOLOGY RPT PROCEDURE Name: JULIANNEYAQUELIN BENAVIDES Room: [address] IN M.R.#: [id number] Admission: 07/03/19 Date of : 68 Discharge: Report #: [id number] Path Case #: [id number] [facility] Accession Number: [id number] . 01 Material submitted: . PART A: toe - LEFT 5TH RAY. Modifiers: left, fifth PART B: toe - LEFT 4TH RAY. Modifiers: left, fourth . 01 Clinical history: . Gas gangrenous left fifth ray, osteomyelitis . 02 Diagnosis: A. "Left fifth ray", amputation: - Skin and subcutaneous tissue with acute and chronic inflammation, necrosis, granulation tissue, fibrosis, fat necrosis and pseudoepitheliomatous hyperplasia; focally involving the inked surgical margin. - Decalcified bone with extensive acute osteomyelitis. . B. "Left fourth ray", amputation: - Skin and subcutaneous tissue with subcutaneous acute and chronic inflammation, necrosis, granulation tissue and fat necrosis with overlying pseudoepitheliomatous hyperplasia. - Decalcified bone with reactive and degenerative changes. (CLW/db; 07/07/2019) LBQ 07/07/2019 1513 Local . 02 Electronically signed: . Shaila Walters MD, Pathologist NPI- [id number] . 01 Gross description: . A. The specimen is received in formalin, labeled "Yaquelin Whitaker, left fifth ray". Received is an AP dated digit measuring 7.3 x 5.0 x 3.7 cm in greatest dimensions. The bone margin is jagged in appearance. The bone and soft tissue margins are inked black. The nail is present display in a pale lu and thickened appearance. The entire toe is blue-maddox to blue-purple in appearance. Along the lateral aspect, and extending onto the plantar aspect of the specimen, there is a poorly circumscribed, irregular in contour and light lu to maddox-brown lesion measuring 4.0 x 3.3 cm, which is 0.7 cm from the closest skin margin. The specimen is horizontally sectioned through the lesion to show light lu to dusky maddox-brown, necrotic underlying soft tissue surrounding the bone. The specimen is submitted representatively as follows: . A1 passenger service representative section of lesion to show relationship with skin margin A2 horizontal cross-section through lesion with underlying bone, [place] [address] PATHOLOGY RPT PROCEDURE Name: YAQUELIN WHITAKER Room: [address] IN [facility].#: [id number] Admission: 07/03/19 Date of : 68 Discharge: Report #: [id number] Path Case #: [id number] following decalcification A3 longitudinal cross-section through bone margin, following decalcification. . B. The specimen is received in formalin, labeled "Yaquelin Whitaker, left fourth ray". Received is an amputated digit measuring 5.3 x 3.1 x 1.8 cm in greatest dimensions. The bone margin is smooth and concave in appearance, consistent with disarticulation. The bone and soft tissue margins are inked blue. The nail is present displaying a pale lu and slightly thickened appearance. The epidermal surface is pale lu and wrinkled in appearance with no grossly distinct nodules or lesions. Also received within the specimen container is an additional segment of bone displaying one smooth, convex disarticulated margin, and one jagged margin measuring 3.1 x 2.0 x 0.8 cm in greatest mentions. The jagged margin is inked black. The specimen is submitted representatively as follows: . B1-B2 full-thickness longitudinal cross-section of digit, submitted from proximal to distal aspects, following decalcification B3 full-thickness cross-section of separately submitted segment of bone, following decalcification. (CAA; 07/06/2019) QA/[facility] 07/06/2019 0853 Local . 02 Pathologist provided ICD-10: L98.9, I96, L90.5, M86.172 . 02 CPT . 789738, 834215, [id number], [id number] Specimen Comment: A courtesy copy of this report has been sent to [phone] Specimen Comment: [phone], Specimen Comment: Report sent to , and Performed at: 01 [facility] [address] [id number] MD Michael Oviedo MD Phone: [phone] Performed at: 02 [facility] [address] [id number] MD Richi Dunbar MD Phone: [phone]
--- NOTE | 2019-07-08 02:54 | NUR ---
PT ALERT ORIENTED. PT REFUSING BLOOD GLUCOSE HS AND INSULIN. PT TELLING STAFF WHEN TO TAKE VITAL SIGNS. MED SURG STATUS. R UPPER ARM PICC IN PLACE. ON RA. PT REFUSED PAIN MEDICATION.
--- NOTE | 2019-07-08 05:59 | NUR ---
PT SLEEPING STATED DO NOT WAKE HIM UP UNLESS EMERGENCY. 0600 AND 0700 MEDS LEFT ON SEP FOR DAY SHIFT TO PASS.
[2019-07-08 08:00] VITALS: BP 156/84
[2019-07-08 08:18] LABS: HEMATOCRIT 25.7 % (42.0-52.0); MCH 26.6 pg (26.0-34.0); MCHC 31.1 g/dL (28.0-37.0); MCV 85.6 fL (80.0-100.0); MPV 8.8 fl. (7.2-11.1); NUCLEATED RBCS 0 /100WBC; PLATELET COUNT* 222 thou/uL (150-400); RDW-CV 20.5 % (10.5-14.5); WBC 9.2 thou/uL (4.0-11.0)
[2019-07-08 08:36] LABS: ALBUMIN 2.7 g/dL (3.4-5.0); CALCIUM 8.3 mg/dL (8.5-10.1); MAGNESIUM 2.4 mg/dL (1.8-2.4); POTASSIUM 4.9 mmol/L (3.5-5.1); TOTAL BILIRUBIN 0.5 mg/dL (<0.1-1.0); TOTAL PROTEIN 6.8 g/dL (6.4-8.2)
[2019-07-08 09:42] LABS: ABSOLUTE EOSINOPHILS 0.3 thou/uL (0.0-0.7); ABSOLUTE LYMPHOCYTES 0.6 thou/uL (0.8-5.3); ABSOLUTE MONOCYTES 0.6 thou/uL (0.0-1.2); ABSOLUTE NEUTROPHILS 7.7 thou/uL (1.6-8.1); PLATELET ESTIMATE ADEQUATE
[2019-07-08 09:43] LABS: ANISOCYTOSIS 2+
--- NOTE | 2019-07-08 11:36 | NUR ---
ASSUMED CARE OF PT AT 0730. PT RESTING IN BED WAITING FOR BREAKFAST. PT A&0X4, DENIES ANY PAIN OR SHORTNESS OF BREATH AT THIS TIME. PT GIVEN PAIN MEDICATION BY NOC SHIFT WITH RELIEF. MED SURG STATUS. ON RA SAT UPPER 90'S. PT UP WITH SBA WEIGHT BEARING HEEL ONLY TO LLE. IV IRON ORDERED. PT GOAL FOR TODAY IS OBTAIN STOOL SAMPLE FOR OCCULT BLOOD, COMPLIANCE WITH MEDICATIONS AND WEIGHT BEARING STATUS. DR TRIPP HERE TO SEE PT. WILL CHANGE DRESSING TOMORROW 07/09. AM ASSESSMENT CHARTED. MEDICATIONS PER SEP. PT REPOSITIONS SELF. HOURLY ROUNDING OBSERVED. BED IN LOW POSITION. CALL LIGHT WITHIN REACH. WILL CONTINUE PLAN OF CARE.
[2019-07-08 12:07] VITALS: BP 120/72
--- NOTE | 2019-07-08 17:06 | NUR ---
NO ACUTE CHANGES THROUGHOUT SHIFT. REFER TO CHARTING. OCCULT BLOOD SAMPLE OBTAINED- NEGATIVE. PT COMPLAINED OF BACK PAIN THIS AFTERNOON-TREATED WITH PRN NORCO WITH RELIEF. PT EDUCATED ON HEEL ONLY WEIGHT BEARING STATUS- REINFORCEMENT NEEDED. ON RA SAT UPPER 90'S. CONTINUES TO REFUSE INSULIN-EDUCATION GIVEN. NOT PROGRESSING TOWARDS GOALS. PROBABLE DISCHARGE TO [facility] ON TUESDAY 07/10. MEDICATIONS PER SEP. PT REPOSITIONS SELF. HOURLY ROUNDING OBSERVED. BED IN LOW POSITION. CALL LIGHT WITHIN REACH. WILL CONTINUE PLAN OF CARE.
[2019-07-08 22:09] LABS: IgA 164 mg/dL (90-386); IgG 822 mg/dL (700-1600); IgM 75 mg/dL (20-172)
[2019-07-09 04:30] VITALS: BP 152/74
[2019-07-09 05:27] LABS: HEMATOCRIT 24.1 % (42.0-52.0); HEMOGLOBIN 7.5 gm/dL (14.0-18.0); MCH 26.7 pg (26.0-34.0); MCHC 31.1 g/dL (28.0-37.0); MCV 85.8 fL (80.0-100.0); MPV 8.8 fl. (7.2-11.1); RBC 2.81 mil/uL (4.50-6.00); RDW-CV 20.9 % (10.5-14.5); WBC 6.9 thou/uL (4.0-11.0)
[2019-07-09 05:33] LABS: CALCIUM 7.9 mg/dL (8.5-10.1); CREATININE 1.8 mg/dL (0.6-1.3); MAGNESIUM 2.3 mg/dL (1.8-2.4); POTASSIUM 4.5 mmol/L (3.5-5.1)
--- NOTE | 2019-07-09 06:56 | NUR ---
RECEIVED REPORT AND ASSUMED CARE AT 1900. PT REFUSED TO HAVE VS TAKEN. ASSESSMENT COMPLETED CHARTED. PT LATER AGREED TO HAVE VITALS TAKEN BEFORE MEDICATION. PT UP TO BSC, ON RA. BED LOCKED IN LOWEST POSITION, CALL LIGHT WIHTIN REACH. PT REPORTED PAIN, PRN MEDICATION ADMIN PER SEP. NO ACUTE CHANGES THROUGH THE NIGHT. HOURLY ROUNDING COMPLETED AND ALL NEEDS MET.
[2019-07-09 08:00] VITALS: BP 162/87
[2019-07-09 12:20] VITALS: BP 118/69
--- NOTE | 2019-07-09 15:14 | NUR ---
ASSUMED CARE OF PT AT 0730. PT RESTING IN BED WAITING FOR BREAKFAST. A&0X4, COMPLAINE OF PAIN TO BACK-TREATED WITH PRN NORCO WITH RELIEF. MED SURG STATUS. ON RA SAT UPPER 90'S. DENIES ANY SHORTNESS OF BREATH.PT UP WITH SBA WEIGHT BEARING TO LEFT HEEL ONLY. DR HAINES HERE THIS AM- DRESSING CHANGED TO LEFT FOOT WOUND AND PICTURES OBTAINED AND PLACED IN CHART. PT MOM AT BEDSIDE THIS AFTERNOON AND UPDATED ON CURRENT PLAN OF CARE. PT ENCOURAGED TO SIT IN RECLINER AND ELEVATE LE- PT SAT IN RECLINER THIS AFTERNOON FOR APPROXIMATELY 2 HOURS. PROBABLE DISCHARGE TO [facility] TOMORROW AND WOUND VAC PLACEMENT TOMORROW WELL. AM ASSESSMENT CHARTED. MEDICATIONS PER SEP. PT REPOSITIONS SELF. HOURLY ROUNDING OBSERVED. BED IN LOW POSITION. CALL LIGHT WITHIN REACH. WILL CONTINUE PLAN OF CARE.
[2019-07-09 20:00] VITALS: BP 164/94
[2019-07-10 00:16] VITALS: BP 155/89
--- NOTE | 2019-07-10 02:02 | NUR ---
PT ALERT ORIENTED. UP AD LOGAN IN ROOM. HYDROCODONE GIVEN TWICE FOR BACK PAIN. LEFT FOOT DRSG [place] WRAPPED D/I. MED/SURG STATUS NOT TELEMETRY MONITORED. PLAN FOR DC LATER TODAY.
--- NOTE | 2019-07-10 05:43 | NUR ---
HYDROCODONE GIVEN 3 TIMES THIS SHIFT FOR BACK PAIN. PT REFUSED AM BLOOD GLUCOSE.
--- NOTE | 2019-07-10 07:56 | NUR ---
PT TRANSFERED TO [facility] WITH PT. REPORT GIVEN TO PANCHO VALLEJO.
[2019-07-10 09:30] VITALS: BP 126/55
--- NOTE | 2019-07-10 10:00 | NUR ---
PER REQUEST, FAXED UPDATED CLINICALS, DISCHARGE SUMMARY, AND MED LIST TO NICOLAS/ROSEANNE GENTILE. SHE RECEIVED AND SAID SHE IS WORKING ON A ROOM AND TIME OF TRANSFER FOR PT. SHE WILL LET ME KNOW.
[2019-07-10] MEDS ORDERED: IPRAT-ALBUT 0.5-3 ML INH (11:04)
[2019-07-10] MEDS ORDERED: EPOGEN2000 UNIT/ SUBQ (11:05)
[2019-07-10] MEDS ORDERED: GLIPIZIDE 10 MG10 MG PO (11:06)
[2019-07-10] MEDS ORDERED: HYDRALAZINE 2525 MG PO (11:07)
[2019-07-10] MEDS ORDERED: NORCO 5-325 TA1 EAC1 PO (11:08)
[2019-07-10] MEDS ORDERED: IMDUR 30 MG TAB30 M1 PO (11:09)
[2019-07-10] MEDS ORDERED: CEFTRIAXON1 GM/50 M1 IV (11:09)
[2019-07-10] MEDS ORDERED: VENOFER200 MG/10 IV (11:13)
[2019-07-10] MEDS ORDERED: VANCO 750750 MG/250 IV (11:14)
[2019-07-10] MEDS ORDERED: UNASYN 3 GM VIAL3 G1 IV (13:53)
--- NOTE | 2019-07-10 15:49 | NUR ---
PT DISCHARGED BY [facility] AT 1648 TO [facility]. REPORT CALLED. PICC LINE IN PLACE. DRESSING C/D/I. PAIN CONTROLLED. [facility] SENT WITH PT.
[2019-07-12 19:10] LABS: GLOBULIN TOTAL 3.1 g/dL (2.2-3.9); M-SPIKE Not Observed g/dL (Not Observed)
== END 2019-07-10 15:52 | DRG 239 ==
LOC: M.ERS 09:57 → M.TBA-ER 12:14 → M.2W 12:14 → M.ORTHSURG 07-10 07:57
PROVIDERS: Family Medicine; Internal Medicine Nephrology; ADMIT Internal Medicine
PROC: 30233N1 Transfusion of Nonautologous Red Blood Cells into Peripheral Vein, Percutaneous Approach (ICD-10-PCS; principal; 2019-07-04)
PROC: 0Y6N0ZF Detachment at Left Foot, Partial 5th Ray, Open Approach (ICD-10-PCS; principal; 2019-07-04)
PROC: 0Y6N0ZD Detachment at Left Foot, Partial 4th Ray, Open Approach (ICD-10-PCS; principal; 2019-07-04)
DX: E11.52 Type 2 diabetes mellitus with diabetic peripheral angiopathy with gangrene (principal); I50.23 Acute on chronic systolic (congestive) heart failure; A48.0 Gas gangrene; I13.0 Hypertensive heart and chronic kidney disease with heart failure and stage 1 through stage 4 chronic kidney disease, or unspecified chronic kidney disease; M86.8X8 Other osteomyelitis, other site; I42.9 Cardiomyopathy, unspecified; I48.20 Chronic atrial fibrillation, unspecified; L03.116 Cellulitis of left lower limb; L02.619 Cutaneous abscess of unspecified foot; N17.9 Acute kidney failure, unspecified; E11.69 Type 2 diabetes mellitus with other specified complication; E78.5 Hyperlipidemia, unspecified; I48.0 Paroxysmal atrial fibrillation; E66.9 Obesity, unspecified; E11.22 Type 2 diabetes mellitus with diabetic chronic kidney disease; E11.621 Type 2 diabetes mellitus with foot ulcer; G47.33 Obstructive sleep apnea (adult) (pediatric); I44.30 Unspecified atrioventricular block; E11.42 Type 2 diabetes mellitus with diabetic polyneuropathy; M10.9 Gout, unspecified; N18.3 Chronic kidney disease, stage 3 (moderate); D50.9 Iron deficiency anemia, unspecified; D72.829 Elevated white blood cell count, unspecified; D63.1 Anemia in chronic kidney disease; Z91.19 Patient's noncompliance with other medical treatment and regimen; Z68.33 Body mass index [BMI] 33.0-33.9, adult; Z87.891 Personal history of nicotine dependence; Z79.899 Other long term (current) drug therapy

== ENCOUNTER → 2019-08-29 | Outpatient (CLI) | payer MEDICAID ==
[~2019-08-29] MED LIST changes: +CEFTRIAXON1 GM/50 M1 IV; +EPOGEN2000 UNIT/ SUBQ; +GLIPIZIDE 10 MG10 MG PO; +IMDUR 30 MG TAB30 M1 PO; +IPRAT-ALBUT 0.5-3 ML INH; +NORCO 5-325 TA1 EAC1 PO; +SPIRONOLACTONE25 MG PO; +TRADJENTA5 MG; +UNASYN 3 GM VIAL3 G1 IV; +VANCO 750750 MG/250 IV; +VENOFER200 MG/10 IV
== END ==
LOC: M.WC 09:00
DX: T87.89 Other complications of amputation stump (principal); E11.622 Type 2 diabetes mellitus with other skin ulcer; L97.211 Non-pressure chronic ulcer of right calf limited to breakdown of skin; E11.621 Type 2 diabetes mellitus with foot ulcer; L97.412 Non-pressure chronic ulcer of right heel and midfoot with fat layer exposed; L97.511 Non-pressure chronic ulcer of other part of right foot limited to breakdown of skin; L97.524 Non-pressure chronic ulcer of other part of left foot with necrosis of bone; I50.9 Heart failure, unspecified; I48.91 Unspecified atrial fibrillation; M10.9 Gout, unspecified; F32.9 Major depressive disorder, single episode, unspecified; Z87.891 Personal history of nicotine dependence; Y83.5 Amputation of limb(s) as the cause of abnormal reaction of the patient, or of later complication, without mention of misadventure at the time of the procedure

== ENCOUNTER → 2019-09-05 | Outpatient (CLI) | payer MEDICAID | LOC: M.WC 03:19 | DX: T87.89 Other complications of amputation stump (principal); E11.621 Type 2 diabetes mellitus with foot ulcer; L97.524 Non-pressure chronic ulcer of other part of left foot with necrosis of bone; I50.9 Heart failure, unspecified; I48.91 Unspecified atrial fibrillation; M10.9 Gout, unspecified; F32.9 Major depressive disorder, single episode, unspecified; Z87.891 Personal history of nicotine dependence; Y83.5 Amputation of limb(s) as the cause of abnormal reaction of the patient, or of later complication, without mention of misadventure at the time of the procedure ==

== ENCOUNTER → 2019-09-12 | Outpatient (CLI) | payer MEDICAID | LOC: M.WC 04:36 | DX: T87.89 Other complications of amputation stump (principal); E11.621 Type 2 diabetes mellitus with foot ulcer; L97.524 Non-pressure chronic ulcer of other part of left foot with necrosis of bone; E11.622 Type 2 diabetes mellitus with other skin ulcer; L97.811 Non-pressure chronic ulcer of other part of right lower leg limited to breakdown of skin; I50.9 Heart failure, unspecified; I48.91 Unspecified atrial fibrillation; M10.9 Gout, unspecified; F32.9 Major depressive disorder, single episode, unspecified; Z87.891 Personal history of nicotine dependence; Y83.5 Amputation of limb(s) as the cause of abnormal reaction of the patient, or of later complication, without mention of misadventure at the time of the procedure ==

== ENCOUNTER → 2019-09-20 | Outpatient (CLI) | payer MEDICAID | LOC: M.WC 09-19 11:00 | DX: T87.89 Other complications of amputation stump (principal); E11.621 Type 2 diabetes mellitus with foot ulcer; L97.524 Non-pressure chronic ulcer of other part of left foot with necrosis of bone; E11.622 Type 2 diabetes mellitus with other skin ulcer; L97.811 Non-pressure chronic ulcer of other part of right lower leg limited to breakdown of skin; I50.9 Heart failure, unspecified; I48.91 Unspecified atrial fibrillation; M10.9 Gout, unspecified; F32.9 Major depressive disorder, single episode, unspecified; Z87.891 Personal history of nicotine dependence; Y83.5 Amputation of limb(s) as the cause of abnormal reaction of the patient, or of later complication, without mention of misadventure at the time of the procedure ==

== ENCOUNTER → 2019-09-26 | Outpatient (CLI) | payer MEDICAID | LOC: M.WC 04:36 | DX: T87.89 Other complications of amputation stump (principal); E11.621 Type 2 diabetes mellitus with foot ulcer; L97.524 Non-pressure chronic ulcer of other part of left foot with necrosis of bone; E11.622 Type 2 diabetes mellitus with other skin ulcer; L97.811 Non-pressure chronic ulcer of other part of right lower leg limited to breakdown of skin; I50.9 Heart failure, unspecified; I48.91 Unspecified atrial fibrillation; M10.9 Gout, unspecified; F32.9 Major depressive disorder, single episode, unspecified; Z87.891 Personal history of nicotine dependence; Y83.5 Amputation of limb(s) as the cause of abnormal reaction of the patient, or of later complication, without mention of misadventure at the time of the procedure ==

== ENCOUNTER → 2019-10-04 | Outpatient (CLI) | payer MEDICAID | LOC: M.WC 04:52 | DX: T87.89 Other complications of amputation stump (principal); E11.621 Type 2 diabetes mellitus with foot ulcer; L97.524 Non-pressure chronic ulcer of other part of left foot with necrosis of bone; E11.622 Type 2 diabetes mellitus with other skin ulcer; L97.811 Non-pressure chronic ulcer of other part of right lower leg limited to breakdown of skin; E66.9 Obesity, unspecified; I50.9 Heart failure, unspecified; I48.91 Unspecified atrial fibrillation; M10.9 Gout, unspecified; F32.9 Major depressive disorder, single episode, unspecified; Z87.891 Personal history of nicotine dependence; Z68.41 Body mass index [BMI] 40.0-44.9, adult; Y83.5 Amputation of limb(s) as the cause of abnormal reaction of the patient, or of later complication, without mention of misadventure at the time of the procedure ==

== ENCOUNTER → 2019-10-18 | Outpatient (CLI) | payer MEDICAID | LOC: M.WC 03:37 | DX: T87.89 Other complications of amputation stump (principal); E11.621 Type 2 diabetes mellitus with foot ulcer; L97.524 Non-pressure chronic ulcer of other part of left foot with necrosis of bone; E11.622 Type 2 diabetes mellitus with other skin ulcer; L97.811 Non-pressure chronic ulcer of other part of right lower leg limited to breakdown of skin; I50.9 Heart failure, unspecified; I48.91 Unspecified atrial fibrillation; M10.9 Gout, unspecified; F32.9 Major depressive disorder, single episode, unspecified; Z87.891 Personal history of nicotine dependence; Y83.5 Amputation of limb(s) as the cause of abnormal reaction of the patient, or of later complication, without mention of misadventure at the time of the procedure ==

== ENCOUNTER → 2019-10-31 | Outpatient (CLI) | payer MEDICAID | LOC: M.WC 04:52 | DX: T87.89 Other complications of amputation stump (principal); E11.621 Type 2 diabetes mellitus with foot ulcer; L97.524 Non-pressure chronic ulcer of other part of left foot with necrosis of bone; E11.622 Type 2 diabetes mellitus with other skin ulcer; L97.811 Non-pressure chronic ulcer of other part of right lower leg limited to breakdown of skin; I50.9 Heart failure, unspecified; I48.91 Unspecified atrial fibrillation; M10.9 Gout, unspecified; F32.9 Major depressive disorder, single episode, unspecified; Z87.891 Personal history of nicotine dependence; Y83.5 Amputation of limb(s) as the cause of abnormal reaction of the patient, or of later complication, without mention of misadventure at the time of the procedure ==

== ENCOUNTER → 2019-11-14 | Outpatient (CLI) | payer MEDICAID | LOC: M.WC 04:25 | DX: T87.89 Other complications of amputation stump (principal); E11.621 Type 2 diabetes mellitus with foot ulcer; L97.524 Non-pressure chronic ulcer of other part of left foot with necrosis of bone; E11.622 Type 2 diabetes mellitus with other skin ulcer; L97.811 Non-pressure chronic ulcer of other part of right lower leg limited to breakdown of skin; E11.52 Type 2 diabetes mellitus with diabetic peripheral angiopathy with gangrene; I96 Gangrene, not elsewhere classified; I48.91 Unspecified atrial fibrillation; I50.9 Heart failure, unspecified; M10.9 Gout, unspecified; F32.9 Major depressive disorder, single episode, unspecified; Z87.891 Personal history of nicotine dependence; Y83.5 Amputation of limb(s) as the cause of abnormal reaction of the patient, or of later complication, without mention of misadventure at the time of the procedure ==

== ENCOUNTER → 2019-11-28 | Outpatient (CLI) | payer MEDICAID | LOC: M.WC 03:07 | DX: T87.89 Other complications of amputation stump (principal); E11.621 Type 2 diabetes mellitus with foot ulcer; L97.524 Non-pressure chronic ulcer of other part of left foot with necrosis of bone; E11.622 Type 2 diabetes mellitus with other skin ulcer; L97.811 Non-pressure chronic ulcer of other part of right lower leg limited to breakdown of skin; I50.9 Heart failure, unspecified; M10.9 Gout, unspecified; F32.9 Major depressive disorder, single episode, unspecified; Z87.891 Personal history of nicotine dependence; Y83.5 Amputation of limb(s) as the cause of abnormal reaction of the patient, or of later complication, without mention of misadventure at the time of the procedure ==

== ENCOUNTER → 2019-12-12 | Outpatient (CLI) | payer MEDICAID | LOC: M.WC 04:55 | DX: T87.89 Other complications of amputation stump (principal); E11.621 Type 2 diabetes mellitus with foot ulcer; L97.524 Non-pressure chronic ulcer of other part of left foot with necrosis of bone; E11.622 Type 2 diabetes mellitus with other skin ulcer; L97.811 Non-pressure chronic ulcer of other part of right lower leg limited to breakdown of skin; I50.9 Heart failure, unspecified; I48.91 Unspecified atrial fibrillation; M10.9 Gout, unspecified; F32.9 Major depressive disorder, single episode, unspecified; Z87.891 Personal history of nicotine dependence; Y83.5 Amputation of limb(s) as the cause of abnormal reaction of the patient, or of later complication, without mention of misadventure at the time of the procedure ==

== ENCOUNTER → 2020-01-02 | Outpatient (CLI) | payer MEDICAID | LOC: M.WC 12-26 09:30 | PROVIDERS: ATTEND Emergency Medicine Undersea and Hyperbaric Medicine | DX: E11.621 Type 2 diabetes mellitus with foot ulcer (principal); L97.524 Non-pressure chronic ulcer of other part of left foot with necrosis of bone; E11.622 Type 2 diabetes mellitus with other skin ulcer; L97.811 Non-pressure chronic ulcer of other part of right lower leg limited to breakdown of skin; L84 Corns and callosities; E11.52 Type 2 diabetes mellitus with diabetic peripheral angiopathy with gangrene; I96 Gangrene, not elsewhere classified; I50.9 Heart failure, unspecified; I48.91 Unspecified atrial fibrillation; M10.9 Gout, unspecified; F32.9 Major depressive disorder, single episode, unspecified; Z89.422 Acquired absence of other left toe(s); Z87.891 Personal history of nicotine dependence ==

== ENCOUNTER → 2020-01-30 | Outpatient (CLI) | payer MEDICAID | LOC: M.WC 04:06 | PROVIDERS: ATTEND Emergency Medicine Undersea and Hyperbaric Medicine | DX: T87.89 Other complications of amputation stump (principal); E11.621 Type 2 diabetes mellitus with foot ulcer; L97.524 Non-pressure chronic ulcer of other part of left foot with necrosis of bone; E11.622 Type 2 diabetes mellitus with other skin ulcer; L97.811 Non-pressure chronic ulcer of other part of right lower leg limited to breakdown of skin; L84 Corns and callosities; I50.9 Heart failure, unspecified; I48.91 Unspecified atrial fibrillation; M10.9 Gout, unspecified; F32.9 Major depressive disorder, single episode, unspecified; Z87.891 Personal history of nicotine dependence; Y83.5 Amputation of limb(s) as the cause of abnormal reaction of the patient, or of later complication, without mention of misadventure at the time of the procedure ==

== ENCOUNTER → 2020-02-27 | Outpatient (CLI) | payer MEDICAID | LOC: M.WC 08:58 | PROVIDERS: ATTEND Emergency Medicine Undersea and Hyperbaric Medicine | DX: E11.622 Type 2 diabetes mellitus with other skin ulcer (principal); L97.811 Non-pressure chronic ulcer of other part of right lower leg limited to breakdown of skin; E11.621 Type 2 diabetes mellitus with foot ulcer; L97.524 Non-pressure chronic ulcer of other part of left foot with necrosis of bone; I50.9 Heart failure, unspecified; I48.91 Unspecified atrial fibrillation; M10.9 Gout, unspecified; F32.9 Major depressive disorder, single episode, unspecified; Z87.891 Personal history of nicotine dependence ==

== ENCOUNTER → 2020-04-02 | Outpatient (CLI) | payer MEDICAID | LOC: M.WC 03-26 09:30 | PROVIDERS: ATTEND Emergency Medicine Undersea and Hyperbaric Medicine | DX: T87.89 Other complications of amputation stump (principal); E11.621 Type 2 diabetes mellitus with foot ulcer; L97.524 Non-pressure chronic ulcer of other part of left foot with necrosis of bone; E11.622 Type 2 diabetes mellitus with other skin ulcer; L97.811 Non-pressure chronic ulcer of other part of right lower leg limited to breakdown of skin; I50.9 Heart failure, unspecified; I48.91 Unspecified atrial fibrillation; M10.9 Gout, unspecified; F32.9 Major depressive disorder, single episode, unspecified; Z87.891 Personal history of nicotine dependence; Y83.5 Amputation of limb(s) as the cause of abnormal reaction of the patient, or of later complication, without mention of misadventure at the time of the procedure ==

== ENCOUNTER → 2020-04-23 | Outpatient (CLI) | payer MEDICAID | LOC: M.WC 05:07 | PROVIDERS: ATTEND Emergency Medicine Undersea and Hyperbaric Medicine | DX: E11.621 Type 2 diabetes mellitus with foot ulcer (principal); L89.892 Pressure ulcer of other site, stage 2; L97.524 Non-pressure chronic ulcer of other part of left foot with necrosis of bone; E11.622 Type 2 diabetes mellitus with other skin ulcer; L97.811 Non-pressure chronic ulcer of other part of right lower leg limited to breakdown of skin; L84 Corns and callosities; I50.9 Heart failure, unspecified; I48.91 Unspecified atrial fibrillation; M10.9 Gout, unspecified; F32.9 Major depressive disorder, single episode, unspecified; Z87.891 Personal history of nicotine dependence ==

== ENCOUNTER → 2020-04-30 | Outpatient (CLI) | payer MEDICARE, MEDICAID | LOC: M.WC 05:13 | PROVIDERS: ATTEND Emergency Medicine Undersea and Hyperbaric Medicine | DX: T87.89 Other complications of amputation stump (principal); E11.621 Type 2 diabetes mellitus with foot ulcer; L89.892 Pressure ulcer of other site, stage 2; L97.524 Non-pressure chronic ulcer of other part of left foot with necrosis of bone; E11.622 Type 2 diabetes mellitus with other skin ulcer; L97.811 Non-pressure chronic ulcer of other part of right lower leg limited to breakdown of skin; E11.52 Type 2 diabetes mellitus with diabetic peripheral angiopathy with gangrene; I96 Gangrene, not elsewhere classified; I50.9 Heart failure, unspecified; I48.91 Unspecified atrial fibrillation; M10.9 Gout, unspecified; Z87.891 Personal history of nicotine dependence; Y83.5 Amputation of limb(s) as the cause of abnormal reaction of the patient, or of later complication, without mention of misadventure at the time of the procedure ==

== ENCOUNTER → 2020-05-07 | Outpatient (CLI) | payer MEDICARE, MEDICAID | LOC: M.WC 05:43 | PROVIDERS: ATTEND Emergency Medicine Undersea and Hyperbaric Medicine | DX: E11.621 Type 2 diabetes mellitus with foot ulcer (principal); L89.892 Pressure ulcer of other site, stage 2; L97.524 Non-pressure chronic ulcer of other part of left foot with necrosis of bone; E11.622 Type 2 diabetes mellitus with other skin ulcer; L97.811 Non-pressure chronic ulcer of other part of right lower leg limited to breakdown of skin; I50.9 Heart failure, unspecified; I48.91 Unspecified atrial fibrillation; M10.9 Gout, unspecified; F32.9 Major depressive disorder, single episode, unspecified; Z87.891 Personal history of nicotine dependence ==

== ENCOUNTER → 2020-05-14 | Outpatient (CLI) | payer MEDICARE, MEDICAID | LOC: M.WC 08:06 | PROVIDERS: ATTEND Emergency Medicine Undersea and Hyperbaric Medicine | DX: E11.621 Type 2 diabetes mellitus with foot ulcer (principal); L97.524 Non-pressure chronic ulcer of other part of left foot with necrosis of bone; L97.421 Non-pressure chronic ulcer of left heel and midfoot limited to breakdown of skin; L97.511 Non-pressure chronic ulcer of other part of right foot limited to breakdown of skin; L89.892 Pressure ulcer of other site, stage 2; E11.622 Type 2 diabetes mellitus with other skin ulcer; L97.811 Non-pressure chronic ulcer of other part of right lower leg limited to breakdown of skin; L84 Corns and callosities; I50.9 Heart failure, unspecified; I48.91 Unspecified atrial fibrillation; M10.9 Gout, unspecified; F32.9 Major depressive disorder, single episode, unspecified; Z87.891 Personal history of nicotine dependence ==

== ENCOUNTER → 2020-05-21 | Outpatient (CLI) | payer MEDICARE, MEDICAID | LOC: M.WC 00:39 | PROVIDERS: ATTEND Emergency Medicine Undersea and Hyperbaric Medicine | DX: E11.621 Type 2 diabetes mellitus with foot ulcer (principal); L97.524 Non-pressure chronic ulcer of other part of left foot with necrosis of bone; L97.511 Non-pressure chronic ulcer of other part of right foot limited to breakdown of skin; L89.892 Pressure ulcer of other site, stage 2; E11.622 Type 2 diabetes mellitus with other skin ulcer; L97.811 Non-pressure chronic ulcer of other part of right lower leg limited to breakdown of skin; L84 Corns and callosities; E11.52 Type 2 diabetes mellitus with diabetic peripheral angiopathy with gangrene; I96 Gangrene, not elsewhere classified; I50.9 Heart failure, unspecified; I48.91 Unspecified atrial fibrillation; M10.9 Gout, unspecified; F32.9 Major depressive disorder, single episode, unspecified; Z89.422 Acquired absence of other left toe(s); Z87.891 Personal history of nicotine dependence ==

== ENCOUNTER → 2020-05-28 | Outpatient (CLI) | payer MEDICARE, MEDICAID | LOC: M.WC 07:17 | PROVIDERS: ATTEND Emergency Medicine Undersea and Hyperbaric Medicine | DX: E11.621 Type 2 diabetes mellitus with foot ulcer (principal); L97.524 Non-pressure chronic ulcer of other part of left foot with necrosis of bone; E11.622 Type 2 diabetes mellitus with other skin ulcer; L97.811 Non-pressure chronic ulcer of other part of right lower leg limited to breakdown of skin; L97.511 Non-pressure chronic ulcer of other part of right foot limited to breakdown of skin; L84 Corns and callosities; I50.9 Heart failure, unspecified; I48.91 Unspecified atrial fibrillation; M10.9 Gout, unspecified; F32.9 Major depressive disorder, single episode, unspecified; Z87.891 Personal history of nicotine dependence ==

== ENCOUNTER → 2020-06-11 | Outpatient (CLI) | payer MEDICARE, MEDICAID | LOC: M.WC 08:35 | PROVIDERS: ATTEND Emergency Medicine Undersea and Hyperbaric Medicine | DX: T87.44 Infection of amputation stump, left lower extremity (principal); E11.621 Type 2 diabetes mellitus with foot ulcer; L97.524 Non-pressure chronic ulcer of other part of left foot with necrosis of bone; L97.511 Non-pressure chronic ulcer of other part of right foot limited to breakdown of skin; E11.622 Type 2 diabetes mellitus with other skin ulcer; L97.811 Non-pressure chronic ulcer of other part of right lower leg limited to breakdown of skin; L03.116 Cellulitis of left lower limb; E11.52 Type 2 diabetes mellitus with diabetic peripheral angiopathy with gangrene; I96 Gangrene, not elsewhere classified; I50.9 Heart failure, unspecified; L84 Corns and callosities; I48.91 Unspecified atrial fibrillation; M10.9 Gout, unspecified; D64.9 Anemia, unspecified; F32.9 Major depressive disorder, single episode, unspecified; Z86.19 Personal history of other infectious and parasitic diseases; Z87.891 Personal history of nicotine dependence; Z79.84 Long term (current) use of oral hypoglycemic drugs; Z79.01 Long term (current) use of anticoagulants; Y83.5 Amputation of limb(s) as the cause of abnormal reaction of the patient, or of later complication, without mention of misadventure at the time of the procedure ==

== ENCOUNTER → 2020-06-25 | Outpatient (CLI) | payer MEDICARE, MEDICAID | LOC: M.WC 09:25 | PROVIDERS: ATTEND Emergency Medicine Undersea and Hyperbaric Medicine | DX: T87.44 Infection of amputation stump, left lower extremity (principal); E11.621 Type 2 diabetes mellitus with foot ulcer; L97.524 Non-pressure chronic ulcer of other part of left foot with necrosis of bone; L97.511 Non-pressure chronic ulcer of other part of right foot limited to breakdown of skin; E11.52 Type 2 diabetes mellitus with diabetic peripheral angiopathy with gangrene; I96 Gangrene, not elsewhere classified; I50.9 Heart failure, unspecified; L84 Corns and callosities; I48.91 Unspecified atrial fibrillation; M10.9 Gout, unspecified; D64.9 Anemia, unspecified; F32.9 Major depressive disorder, single episode, unspecified; Z86.19 Personal history of other infectious and parasitic diseases; Z87.891 Personal history of nicotine dependence; Z79.84 Long term (current) use of oral hypoglycemic drugs; Z79.01 Long term (current) use of anticoagulants; Y83.5 Amputation of limb(s) as the cause of abnormal reaction of the patient, or of later complication, without mention of misadventure at the time of the procedure ==

== ENCOUNTER → 2020-07-09 | Outpatient (CLI) | payer MEDICARE, MEDICAID | LOC: M.WC 09:16 | PROVIDERS: ATTEND Emergency Medicine Undersea and Hyperbaric Medicine | DX: E11.621 Type 2 diabetes mellitus with foot ulcer (principal); L97.524 Non-pressure chronic ulcer of other part of left foot with necrosis of bone; L97.511 Non-pressure chronic ulcer of other part of right foot limited to breakdown of skin; L84 Corns and callosities; I50.9 Heart failure, unspecified; I48.91 Unspecified atrial fibrillation; M10.9 Gout, unspecified; F32.9 Major depressive disorder, single episode, unspecified; Z87.891 Personal history of nicotine dependence ==

== ENCOUNTER → 2020-08-06 | Outpatient (CLI) | payer MEDICARE, MEDICAID | LOC: M.WC 09:19 | PROVIDERS: ATTEND Emergency Medicine Undersea and Hyperbaric Medicine | DX: E11.621 Type 2 diabetes mellitus with foot ulcer (principal); L97.524 Non-pressure chronic ulcer of other part of left foot with necrosis of bone; L97.511 Non-pressure chronic ulcer of other part of right foot limited to breakdown of skin; L84 Corns and callosities; I50.9 Heart failure, unspecified; I48.91 Unspecified atrial fibrillation; M10.9 Gout, unspecified; F32.9 Major depressive disorder, single episode, unspecified; Z87.891 Personal history of nicotine dependence ==

== ENCOUNTER → 2020-09-17 | Outpatient (CLI) | payer MEDICARE, MEDICAID | LOC: M.WC 09-03 09:30 | PROVIDERS: ATTEND Emergency Medicine Undersea and Hyperbaric Medicine | DX: E11.621 Type 2 diabetes mellitus with foot ulcer (principal); L97.524 Non-pressure chronic ulcer of other part of left foot with necrosis of bone; L97.511 Non-pressure chronic ulcer of other part of right foot limited to breakdown of skin; L84 Corns and callosities; I50.9 Heart failure, unspecified; I48.91 Unspecified atrial fibrillation; M10.9 Gout, unspecified; F32.9 Major depressive disorder, single episode, unspecified; Z87.891 Personal history of nicotine dependence ==

== ENCOUNTER → 2020-10-29 | Outpatient (CLI) | payer MEDICARE, MEDICAID | LOC: M.WC 09:28 | PROVIDERS: ATTEND Emergency Medicine Undersea and Hyperbaric Medicine | DX: E11.621 Type 2 diabetes mellitus with foot ulcer (principal); L97.524 Non-pressure chronic ulcer of other part of left foot with necrosis of bone; L97.511 Non-pressure chronic ulcer of other part of right foot limited to breakdown of skin; L84 Corns and callosities; I50.9 Heart failure, unspecified; I48.91 Unspecified atrial fibrillation; M10.9 Gout, unspecified; F32.9 Major depressive disorder, single episode, unspecified; Z87.891 Personal history of nicotine dependence ==

== ENCOUNTER → 2020-11-05 | Outpatient (CLI) | payer MEDICARE, MEDICAID | LOC: M.WC 13:38 | PROVIDERS: ATTEND Emergency Medicine Undersea and Hyperbaric Medicine | DX: E11.621 Type 2 diabetes mellitus with foot ulcer (principal); L97.524 Non-pressure chronic ulcer of other part of left foot with necrosis of bone; L97.511 Non-pressure chronic ulcer of other part of right foot limited to breakdown of skin; L84 Corns and callosities; E11.52 Type 2 diabetes mellitus with diabetic peripheral angiopathy with gangrene; I96 Gangrene, not elsewhere classified; I50.9 Heart failure, unspecified; I48.91 Unspecified atrial fibrillation; M10.9 Gout, unspecified; F32.9 Major depressive disorder, single episode, unspecified; Z87.891 Personal history of nicotine dependence; Z89.422 Acquired absence of other left toe(s) ==

== ENCOUNTER → 2020-11-19 | Outpatient (CLI) | payer MEDICARE, MEDICAID | LOC: M.WC 10:47 | PROVIDERS: ATTEND Emergency Medicine Undersea and Hyperbaric Medicine | DX: E11.621 Type 2 diabetes mellitus with foot ulcer (principal); L97.524 Non-pressure chronic ulcer of other part of left foot with necrosis of bone; L97.511 Non-pressure chronic ulcer of other part of right foot limited to breakdown of skin; L84 Corns and callosities; E11.52 Type 2 diabetes mellitus with diabetic peripheral angiopathy with gangrene; I96 Gangrene, not elsewhere classified; I50.9 Heart failure, unspecified; I48.91 Unspecified atrial fibrillation; M10.9 Gout, unspecified; F32.9 Major depressive disorder, single episode, unspecified; Z87.891 Personal history of nicotine dependence; Z89.422 Acquired absence of other left toe(s) ==

== ENCOUNTER → 2020-12-03 | Outpatient (CLI) | payer MEDICARE, MEDICAID ==
[~2020-12-03] MED LIST changes: +FERROUS FUMARA324 MG PO; +FLOMAX0.4 MG PO; +GLIPIZIDE ER2.5 MG PO; +LIPITOR10 MG PO; +WELLBUTRIN SR150 M1 PO
== END ==
LOC: M.WC 12:34
PROVIDERS: ATTEND Emergency Medicine Undersea and Hyperbaric Medicine
DX: E11.621 Type 2 diabetes mellitus with foot ulcer (principal); L97.524 Non-pressure chronic ulcer of other part of left foot with necrosis of bone; L97.511 Non-pressure chronic ulcer of other part of right foot limited to breakdown of skin; L84 Corns and callosities; E11.52 Type 2 diabetes mellitus with diabetic peripheral angiopathy with gangrene; I96 Gangrene, not elsewhere classified; I50.9 Heart failure, unspecified; I48.91 Unspecified atrial fibrillation; M10.9 Gout, unspecified; F32.9 Major depressive disorder, single episode, unspecified; Z87.891 Personal history of nicotine dependence; Z89.422 Acquired absence of other left toe(s)

== ENCOUNTER → 2020-12-17 | Outpatient (CLI) | payer MEDICARE, MEDICAID | LOC: M.WC 13:00 | PROVIDERS: ATTEND Emergency Medicine Undersea and Hyperbaric Medicine | DX: E11.621 Type 2 diabetes mellitus with foot ulcer (principal); L97.524 Non-pressure chronic ulcer of other part of left foot with necrosis of bone; L97.511 Non-pressure chronic ulcer of other part of right foot limited to breakdown of skin; L84 Corns and callosities; E11.52 Type 2 diabetes mellitus with diabetic peripheral angiopathy with gangrene; I96 Gangrene, not elsewhere classified; I50.9 Heart failure, unspecified; I48.91 Unspecified atrial fibrillation; M10.9 Gout, unspecified; F32.9 Major depressive disorder, single episode, unspecified; Z87.891 Personal history of nicotine dependence; Z89.422 Acquired absence of other left toe(s) ==

== ENCOUNTER → 2021-04-21 | Outpatient (CLI) | payer MEDICARE, MEDICAID | LOC: M.WC 08:43 | PROVIDERS: ATTEND Surgery | DX: T87.89 Other complications of amputation stump (principal); E11.621 Type 2 diabetes mellitus with foot ulcer; I87.312 Chronic venous hypertension (idiopathic) with ulcer of left lower extremity; L97.412 Non-pressure chronic ulcer of right heel and midfoot with fat layer exposed; E11.622 Type 2 diabetes mellitus with other skin ulcer; L97.822 Non-pressure chronic ulcer of other part of left lower leg with fat layer exposed; L84 Corns and callosities; E11.52 Type 2 diabetes mellitus with diabetic peripheral angiopathy with gangrene; I96 Gangrene, not elsewhere classified; I50.9 Heart failure, unspecified; I48.91 Unspecified atrial fibrillation; M10.9 Gout, unspecified; F32.9 Major depressive disorder, single episode, unspecified; Z87.891 Personal history of nicotine dependence; Z79.4 Long term (current) use of insulin; Y83.5 Amputation of limb(s) as the cause of abnormal reaction of the patient, or of later complication, without mention of misadventure at the time of the procedure ==

== ENCOUNTER 2021-07-30 11:24 | Emergency (ER) | payer MEDICARE, MEDICAID ==
[~2021-07-30] VITALS: Ht 185.4 cm; Wt 140.6 kg
[2021-07-30] MEDS ORDERED: TRADJENTA5 MG (11:40)
[2021-07-30] MEDS ORDERED: GLIPIZIDE 10 MG10 MG PO (11:41)
[2021-07-30] MEDS ORDERED: XARELTO15 MG PO (11:41)
[2021-07-30] MEDS ORDERED: CARVEDILOL25 MG PO (11:42)
[2021-07-30] MEDS ORDERED: DRIZALMA SPRINK30 MG PO (11:42)
[2021-07-30 14:29] LABS: URINE BILIRUBIN NEGATIVE (Negative); URINE BLOOD NEGATIVE (Negative); URINE CLARITY CLEAR; URINE COLOR YELLOW; URINE GLUCOSE-RANDOM NEGATIVE (Negative); URINE KETONES NEGATIVE (Negative); URINE LEUKOCYTES NEGATIVE (Negative); URINE NITRITE NEGATIVE (Negative); URINE PROTEIN 2+ (Negative); URINE SPECIFIC GRAVITY >= 1.030 (1.005-1.030); URINE UROBILINOGEN 0.2 E.U./dl (0.2-1.0)
[2021-07-30] MEDS ORDERED: NORFLEX100 MG PO (15:43)
[2021-07-30 16:10] VITALS: BP 115/71
== END 2021-07-30 16:11 | disposition home or self-care (01) ==
LOC: M.ERS 11:24
PROVIDERS: Physician Assistant
DX: M54.50 Low back pain, unspecified (principal); M10.9 Gout, unspecified; I48.91 Unspecified atrial fibrillation; I13.0 Hypertensive heart and chronic kidney disease with heart failure and stage 1 through stage 4 chronic kidney disease, or unspecified chronic kidney disease; I50.9 Heart failure, unspecified; N18.30 Chronic kidney disease, stage 3 unspecified; E11.40 Type 2 diabetes mellitus with diabetic neuropathy, unspecified; Z79.891 Long term (current) use of opiate analgesic; Z79.899 Other long term (current) drug therapy; Z79.1 Long term (current) use of non-steroidal anti-inflammatories (NSAID); Z87.891 Personal history of nicotine dependence